=== PATIENT | male | born 1950 | race Caucasian/White ===

== ENCOUNTER 2017-06-13 14:22 | Emergency (ER) | payer MEDICARE, OTHER ==
[~2017-06-13] VITALS: Ht 162.6 cm; Wt 90.9 kg
[~2017-06-13 14:22] MED LIST: ACET-2119 PO; ALLO100T PO; AMIO200T57 PO; CALC355O3 PO; COLL30OI TP; DULR RC; FERR325T28 PO; GABA-532 PO; INSU100V13 SQ; LORA0.5T PO; MAGN800O PO; MIRT15TA PO; MULT-1085 PO; NA P133E4 RC; OXYC-145 PO; POLY17PO10 PO; VITC500T PO; [UNRECOGNIZED DRUG - CODE] TOP; [UNRECOGNIZED DRUG - CODE] TOP
[2017-06-13 19:30] VITALS: BP 140/80
== END 2017-06-13 18:23 | disposition home or self-care (01) ==
LOC: ER 14:23
DX: K59.00 Constipation, unspecified (principal); K21.9 Gastro-esophageal reflux disease without esophagitis; I10 Essential (primary) hypertension; I48.91 Unspecified atrial fibrillation; M10.9 Gout, unspecified; G62.9 Polyneuropathy, unspecified; Z79.899 Other long term (current) drug therapy; Z91.013 Allergy to seafood
CPT/HCPCS: 93005; 96372; 99284; J2270

== ENCOUNTER 2017-07-24 22:39 | Emergency (ER) | payer MEDICARE, OTHER ==
[~2017-07-24] VITALS: Ht 188 cm; Wt 100.0 kg
[2017-07-24] MEDS ORDERED: HYDROmorphone 1 mg/ml syringe IV ONE (22:55)
[2017-07-24 23:18] LABS: CLARITY,URINE CLEAR (Clear); COLOR,URINE YELLOW (Yellow); GLUCOSE, URINE NEGATIVE (Neg); KETONES,URINE NEGATIVE (Neg); LEUKOCYTE ESTERASE ,URINE MODERATE (Neg); NITRITES, URINE NEGATIVE (Neg); OCCULT BLOOD,URINE LARGE (Neg); PH,URINE 7.5 (4.8-8.0); PROTEIN,URINE 100 mg/dl (Neg); UROBILINOGEN,URINE 0.2 E.U/dL (0.2-1.0)
[2017-07-24 23:20] LABS: UA COLLECTION TYPE STRAIGHT CATH
[2017-07-24 23:25] LABS: SQUAMOUS EPITHELIAL CELL,UR FEW /LPF (FEW)
[2017-07-24 23:26] LABS: BACTERIA,URINE FEW /HPF (Neg); RBC,URINE TNTC /HPF (0-2)
[2017-07-25 00:43] VITALS: BP 190/108
== END 2017-07-25 01:33 | disposition home or self-care (01) ==
LOC: ER 22:40
DX: T83.098A Other mechanical complication of other urinary catheter, initial encounter (principal); R33.9 Retention of urine, unspecified; R10.30 Lower abdominal pain, unspecified; I10 Essential (primary) hypertension; I48.91 Unspecified atrial fibrillation; K21.9 Gastro-esophageal reflux disease without esophagitis; M10.9 Gout, unspecified; Z87.442 Personal history of urinary calculi; Z98.890 Other specified postprocedural states; Z79.899 Other long term (current) drug therapy; Z91.013 Allergy to seafood
CPT/HCPCS: 81001; 99284

== ENCOUNTER 2017-10-30 08:41 | Emergency (ER) | payer OTHER, MEDICARE ==
[~2017-10-30] VITALS: Ht 137.2 cm; Wt 93.2 kg
[2017-10-30 09:24] LABS: BASOPHILS % (AUTO) 0 % (0-1); EOSINOPHILS # (AUTO) 0.3 X10'3 (0-0.9); EOSINOPHILS % (AUTO) 1.7 % (0-6); HEMATOCRIT 35.7 % (42.0-52.0); HEMOGLOBIN 12.4 g/dl (14.0-17.9); LYMPHOCYTES % (AUTO) 6.8 % (21-51); MEAN CORPUSCULAR HEMOGLOBIN 31.6 PG (27.0-31.0); MEAN CORPUSCULAR HGB CONC 34.6 % (33.0-36.5); MEAN CORPUSCULAR VOLUME 91.2 FL (78-98); MONOCYTES # (AUTO) 0.9 X10'3 (0-0.9); NEUTROPHILS # (AUTO) 12.7 X10'3 (1.8-7.7); NEUTROPHILS % (AUTO) 85.5 % (42-75); PLATELET COUNT 188 X10'3 (140-440); RED BLOOD COUNT 3.92 X10'6 (4.70-6.10); RED CELL DISTRIBUTION WIDTH 13.8 % (11.5-14.5); WHITE BLOOD COUNT 14.8 X10'3 (4.5-11.0)
[2017-10-30 09:36] LABS: PARTIAL THROMBOPLASTIN TIME 31 SECONDS (22-32); PROTHROMBIN TIME 10.6 SECONDS (9.0-12.0)
[2017-10-30 09:46] LABS: ALANINE AMINOTRANSFERASE 37 U/L (12-78); ALBUMIN 3.6 G/DL (3.4-5.0); ALBUMIN/GLOBULIN RATIO 0.9 (1.1-1.5); ALKALINE PHOSPHATASE 50 IU/L (46-116); ANION GAP 9 (8-16); ASPARTATE AMINO TRANSFERASE 25 U/L (10-37); BILIRUBIN,TOTAL 0.5 MG/DL (0.1-1.0); BLOOD UREA NITROGEN 23 MG/DL (7-18); BUN/CREATININE RATIO 22.8 (5.4-32.0); CALCIUM 9.1 MG/DL (8.5-10.1); CHLORIDE 100 MMOL/L (99-107); CREATININE 1.01 MG/DL (0.60-1.10); GLUCOSE 168 MG/DL (70-104); POTASSIUM 4.8 MMOL/L (3.5-5.1); SODIUM 134 MMOL/L (135-145); TOTAL PROTEIN 7.4 G/DL (6.4-8.2); eGFR 73 ML/MIN
[2017-10-30] MEDS ORDERED: iohexol 350MG/ML 100ml bottle IV ONE (09:59)
[2017-10-30] MEDS ORDERED: CefTRIAXone 2gm/D5W 50ml 50 ML IV ONE (11:25)
[2017-10-30 11:29] LABS: CLARITY,URINE CLOUDY (Clear); COLOR,URINE YELLOW (Yellow); GLUCOSE, URINE NEGATIVE (Neg); KETONES,URINE NEGATIVE (Neg); LEUKOCYTE ESTERASE ,URINE LARGE (Neg); NITRITES, URINE NEGATIVE (Neg); OCCULT BLOOD,URINE SMALL (Neg); PH,URINE >=9.0 (4.8-8.0); PROTEIN,URINE 100 mg/dl (Neg); UROBILINOGEN,URINE 0.2 E.U/dL (0.2-1.0)
[2017-10-30 11:30] LABS: UA COLLECTION TYPE FOLEY CATH
[2017-10-30 11:36] LABS: AMORPHOUS PHOSPHATES 3+; BACTERIA,URINE 1+ /HPF (Neg); SQUAMOUS EPITHELIAL CELL,UR NONE SEEN /LPF (FEW); TRIPLE PHOSPHATE CRYST 3+ /HPF (NEGATIVE)
[2017-10-30] MEDS ORDERED: normal saline 1000ml 1,000 ML IV ONE (11:50)
[2017-10-30] MEDS ORDERED: acetaminophen 325mg tablet PO ONE (12:20)
[2017-10-30] MEDS ORDERED: NITR100C6 PO (12:29)
[2017-10-30 14:18] VITALS: BP 149/70
== END 2017-10-30 14:34 | disposition home or self-care (01) ==
LOC: ER 08:42
DX: N39.0 Urinary tract infection, site not specified (principal); G62.9 Polyneuropathy, unspecified; I48.91 Unspecified atrial fibrillation; I10 Essential (primary) hypertension; K21.9 Gastro-esophageal reflux disease without esophagitis; R53.83 Other fatigue; Z98.890 Other specified postprocedural states; Z89.612 Acquired absence of left leg above knee; Z89.511 Acquired absence of right leg below knee; Z91.013 Allergy to seafood; Z79.899 Other long term (current) drug therapy; Z87.891 Personal history of nicotine dependence
CPT/HCPCS: 36415; 71045; 71275; 80053; 81001; 82948; 83880; 84484; 85025; 85610; 85730; 87077; 87088; 87186; 93005; 96365; 99285; J0696; J7030; Q9967

== ENCOUNTER 2018-03-08 10:34 | Emergency (ER) | payer OTHER, MEDICARE ==
[~2018-03-08] VITALS: Ht 660.3 cm; Wt 113.0 kg
[~2018-03-08 10:34] MED LIST changes: +AMIO200T40 PO; -AMIO200T57 PO; +NITR100C6 PO
[2018-03-08 11:24] LABS: CLARITY,URINE SLIGHTLY CLOUDY (Clear); COLOR,URINE YELLOW (Yellow); GLUCOSE, URINE >=1000 mg/dl (Neg); KETONES,URINE NEGATIVE (Neg); LEUKOCYTE ESTERASE ,URINE SMALL (Neg); NITRITES, URINE NEGATIVE (Neg); OCCULT BLOOD,URINE MODERATE (Neg); PROTEIN,URINE 30 mg/dl (Neg); UROBILINOGEN,URINE 0.2 E.U/dL (0.2-1.0)
[2018-03-08 11:53] LABS: UA COLLECTION TYPE FOLEY CATH
[2018-03-08 11:56] LABS: RBC,URINE 50-100 /HPF (0-2)
[2018-03-08 11:58] LABS: SQUAMOUS EPITHELIAL CELL,UR NONE SEEN /LPF (FEW)
[2018-03-08] MEDS ORDERED: CIPR-259 PO (12:02)
[2018-03-08 12:10] LABS: AMORPHOUS URATES 1+; BACTERIA,URINE 2+ /HPF (Neg); MUCUS STRANDS FEW /LPF (Neg)
[2018-03-08 14:21] VITALS: BP 172/88
== END 2018-03-08 14:23 | disposition home or self-care (01) ==
LOC: ER 10:34
DX: R33.9 Retention of urine, unspecified (principal); N39.0 Urinary tract infection, site not specified; I10 Essential (primary) hypertension; K21.9 Gastro-esophageal reflux disease without esophagitis; I48.91 Unspecified atrial fibrillation; M10.9 Gout, unspecified; G62.9 Polyneuropathy, unspecified; Z91.013 Allergy to seafood; Z79.4 Long term (current) use of insulin; Z79.2 Long term (current) use of antibiotics; Z79.899 Other long term (current) drug therapy
CPT/HCPCS: 51702; 81001; 87088; 99284; A4315; 87077; 87186

== ENCOUNTER 2018-11-08 20:21 | Emergency (ER) | payer OTHER, MEDICARE ==
[~2018-11-08] VITALS: Ht 180.3 cm; Wt 95.0 kg
[2018-11-08] MEDS ORDERED: normal saline 1000ML IV soln IVB ONE ×2 (20:30)
[2018-11-08] MEDS ORDERED: metoclopramide 5 mg/ml inj IV ONE (20:30)
[2018-11-08] MEDS ORDERED: LORazepam 2 mg/ml vial IV ONE (20:30)
[2018-11-08] MEDS ORDERED: diphenhydrAMINE 50 mg/ml inj IV ONE (20:30)
[2018-11-08] MEDS ORDERED: HYDROmorphone inj. 0.5 MG/0.5 ML DISP.SYRIN IV PRN (20:30)
[2018-11-08 20:48] LABS: BASOPHILS % (AUTO) 0.6 % (0-1); EOSINOPHILS # (AUTO) 0.1 X10'3 (0-0.9); EOSINOPHILS % (AUTO) 2.4 % (0-6); HEMATOCRIT 32.1 % (42.0-52.0); HEMOGLOBIN 11.1 g/dl (14.0-17.9); LYMPHOCYTES # (AUTO) 0.5 X10'3 (1.1-4.8); LYMPHOCYTES % (AUTO) 9.1 % (21-51); MEAN CORPUSCULAR HEMOGLOBIN 32.3 PG (27.0-31.0); MEAN CORPUSCULAR HGB CONC 34.7 g/dL (33.0-36.5); MEAN CORPUSCULAR VOLUME 93.3 FL (78-98); MEAN PLATELET VOLUME 9.4 FL (7.4-10.4); MONOCYTES # (AUTO) 0.3 X10'3 (0-0.9); MONOCYTES % (AUTO) 5.1 % (2-12); NEUTROPHILS # (AUTO) 4.7 X10'3 (1.8-7.7); NEUTROPHILS % (AUTO) 82.8 % (42-75); PLATELET COUNT 173 X10'3 (140-440); RED BLOOD COUNT 3.44 X10'6 (4.70-6.10); RED CELL DISTRIBUTION WIDTH 13.9 % (11.5-14.5); WHITE BLOOD COUNT 5.6 X10'3 (4.5-11.0)
[2018-11-08 20:56] LABS: UA COLLECTION TYPE FOLEY CATH
[2018-11-08 20:57] LABS: CLARITY,URINE SLIGHTLY CLOUDY (Clear); COLOR,URINE YELLOW (Yellow); GLUCOSE, URINE 250 mg/dl (Neg); KETONES,URINE NEGATIVE (Neg); LEUKOCYTE ESTERASE ,URINE MODERATE (Neg); NITRITES, URINE POSITIVE (Neg); OCCULT BLOOD,URINE LARGE (Neg); PROTEIN,URINE TRACE mg/dl (Neg); UROBILINOGEN,URINE 0.2 E.U/dL (0.2-1.0)
[2018-11-08 21:01] LABS: ALANINE AMINOTRANSFERASE 50 U/L (12-78); ALBUMIN 3.4 G/DL (3.4-5.0); ALBUMIN/GLOBULIN RATIO 0.9 (1.1-1.5); ALKALINE PHOSPHATASE 34 IU/L (46-116); ANION GAP 10 (8-16); ASPARTATE AMINO TRANSFERASE 54 U/L (10-37); BILIRUBIN,TOTAL 0.3 MG/DL (0.1-1.0); BLOOD UREA NITROGEN 33 MG/DL (7-18); BUN/CREATININE RATIO 27.3 (5.4-32.0); CALCIUM 8.5 MG/DL (8.5-10.1); CHLORIDE 101 MMOL/L (99-107); CREATININE 1.21 MG/DL (0.60-1.10); GLUCOSE 262 MG/DL (70-104); POTASSIUM 4.7 MMOL/L (3.5-5.1); SODIUM 131 MMOL/L (135-145); TOTAL CARBON DIOXIDE 20.4 MMOL/L (24-32); TOTAL PROTEIN 7.2 G/DL (6.4-8.2); eGFR 59 ML/MIN
[2018-11-08 21:02] LABS: BACTERIA,URINE 2+ /HPF (Neg); MUCUS STRANDS NONE SEEN /LPF (Neg); SQUAMOUS EPITHELIAL CELL,UR MODERATE /LPF (FEW)
[2018-11-08 21:03] LABS: YEAST MODERATE /HPF (NEGATIVE)
[2018-11-08 21:04] LABS: RBC,URINE 50-100 /HPF (0-2); WBC,URINE 50-100 /HPF (0-4)
[2018-11-08 21:07] LABS: MAGNESIUM 2.1 MG/DL (1.5-2.4); TROPONIN I < 0.04 NG/ML (0.0-0.05)
[2018-11-08] MEDS ORDERED: CefTRIAXone 2gm/D5W 50ml 50 ML IV ONE (21:15)
[2018-11-08] MEDS ORDERED: CEPH500C5 PO (21:44)
[2018-11-08 23:08] VITALS: BP 158/81
== END 2018-11-08 23:10 | disposition home or self-care (01) ==
LOC: ER 20:21
DX: N39.0 Urinary tract infection, site not specified (principal); I48.91 Unspecified atrial fibrillation; I10 Essential (primary) hypertension; K21.9 Gastro-esophageal reflux disease without esophagitis; M10.9 Gout, unspecified; G62.9 Polyneuropathy, unspecified; Z98.890 Other specified postprocedural states; Z87.891 Personal history of nicotine dependence; Z87.442 Personal history of urinary calculi; Z89.512 Acquired absence of left leg below knee; Z89.511 Acquired absence of right leg below knee; Z79.899 Other long term (current) drug therapy; Z91.013 Allergy to seafood; Z79.4 Long term (current) use of insulin
CPT/HCPCS: 36415; 71045; 80053; 81001; 83735; 83880; 84145; 84484; 85025; 85610; 87077; 87088; 87186; 93005; 96374; 96375; 99284; J0696; J1170; J1200; J2060; J2765; J7030

== ENCOUNTER 2019-01-14 05:36 | Emergency (ER) | payer OTHER, MEDICARE ==
[~2019-01-14] VITALS: Ht 162.6 cm; Wt 111.4 kg
[~2019-01-14 05:36] MED LIST changes: -AMIO200T40 PO; +AMIO200T61 PO; +CEPH500C5 PO
[2019-01-14] MEDS ORDERED: morphine 4 MG/ML inj SYRINge IV PRN (06:10)
[2019-01-14] MEDS ORDERED: normal saline 1000ML IV soln IVB ONE (06:10)
[2019-01-14] MEDS ORDERED: ondansetron/PF 4mg/2ml inj IV ONE (06:10)
[2019-01-14 07:24] LABS: BASOPHILS # (AUTO) 0.1 X10'3 (0-0.2); EOSINOPHILS # (AUTO) 0.4 X10'3 (0-0.9); EOSINOPHILS % (AUTO) 4.7 % (0-6); HEMATOCRIT 33.4 % (42.0-52.0); HEMOGLOBIN 11.3 g/dl (14.0-17.9); LYMPHOCYTES # (AUTO) 2.5 X10'3 (1.1-4.8); LYMPHOCYTES % (AUTO) 29.4 % (21-51); MEAN CORPUSCULAR HGB CONC 33.8 g/dL (33.0-36.5); MEAN CORPUSCULAR VOLUME 94.6 FL (78-98); MEAN PLATELET VOLUME 9.7 FL (7.4-10.4); MONOCYTES # (AUTO) 0.5 X10'3 (0-0.9); MONOCYTES % (AUTO) 5.9 % (2-12); PLATELET COUNT 154 X10'3 (140-440); RED BLOOD COUNT 3.53 X10'6 (4.70-6.10); RED CELL DISTRIBUTION WIDTH 14.5 % (11.5-14.5); WHITE BLOOD COUNT 8.5 X10'3 (4.5-11.0)
[2019-01-14 07:26] LABS: CLARITY,URINE CLOUDY (Clear); COLOR,URINE YELLOW (Yellow); GLUCOSE, URINE 500 mg/dl (Neg); KETONES,URINE NEGATIVE (Neg); LEUKOCYTE ESTERASE ,URINE MODERATE (Neg); NITRITES, URINE NEGATIVE (Neg); OCCULT BLOOD,URINE LARGE (Neg); PROTEIN,URINE 30 mg/dl (Neg); UROBILINOGEN,URINE 0.2 E.U/dL (0.2-1.0)
[2019-01-14 07:32] LABS: LIPASE 220 U/L (73-393)
[2019-01-14 07:33] LABS: ALANINE AMINOTRANSFERASE 33 U/L (12-78); ALBUMIN 3.2 G/DL (3.4-5.0); ALBUMIN/GLOBULIN RATIO 0.9 (1.1-1.5); ALKALINE PHOSPHATASE 37 IU/L (46-116); ANION GAP 7 (8-16); ASPARTATE AMINO TRANSFERASE 23 U/L (10-37); BILIRUBIN,TOTAL 0.2 MG/DL (0.1-1.0); BLOOD UREA NITROGEN 33 MG/DL (7-18); BUN/CREATININE RATIO 26.4 (5.4-32.0); CALCIUM 8.9 MG/DL (8.5-10.1); CHLORIDE 102 MMOL/L (99-107); CREATININE 1.25 MG/DL (0.60-1.10); GLUCOSE 302 MG/DL (70-104); POTASSIUM 4.5 MMOL/L (3.5-5.1); SODIUM 133 MMOL/L (135-145); TOTAL CARBON DIOXIDE 24.2 MMOL/L (24-32); TOTAL PROTEIN 6.9 G/DL (6.4-8.2); eGFR 57 ML/MIN
[2019-01-14 07:35] LABS: UA COLLECTION TYPE OTHER
[2019-01-14 07:36] LABS: BACTERIA,URINE NONE SEEN /HPF (Neg); MUCUS STRANDS NONE SEEN /LPF (Neg); SQUAMOUS EPITHELIAL CELL,UR NONE SEEN /LPF (FEW); WBC,URINE 30-50 /HPF (0-4); YEAST MANY /HPF (NEGATIVE)
[2019-01-14] MEDS ORDERED: CIPR-230 PO (07:50)
[2019-01-14] MEDS ORDERED: ciprofloxacin 250mg tablet PO ONE (08:10)
--- NOTE | 2019-01-14 08:48 | NUR ---
INITIAL DOSE OF CIPRO GIVEN TO PATIENT. AWAITING TRANSPORTATION FROM [facility]. PATIENT TOLERATED YOGURT AND JELLO. BG 270 PER GLUCOMETER.
[2019-01-14] MEDS ORDERED: HYDROcodone/acetaminophen 5mg/325mg tablet PO ONE (10:40)
[2019-01-14 10:57] VITALS: BP 112/72
== END 2019-01-14 10:59 | disposition home or self-care (01) ==
LOC: ER 05:37
DX: N39.0 Urinary tract infection, site not specified (principal); M79.604 Pain in right leg; R11.0 Nausea; I48.91 Unspecified atrial fibrillation; I10 Essential (primary) hypertension; K21.9 Gastro-esophageal reflux disease without esophagitis; M10.9 Gout, unspecified; F32.9 Major depressive disorder, single episode, unspecified; G62.9 Polyneuropathy, unspecified; Z91.013 Allergy to seafood; Z79.899 Other long term (current) drug therapy; Z79.2 Long term (current) use of antibiotics; Z87.442 Personal history of urinary calculi; Z87.440 Personal history of urinary (tract) infections; Z98.890 Other specified postprocedural states
CPT/HCPCS: 36415; 80053; 81001; 82948; 83690; 85025; 87077; 87088; 87186; 96374; 96375; 99284; J2270; J2405; J7030; 99283

== ENCOUNTER 2019-03-30 20:01 | Emergency (ER) | payer OTHER ==
[~2019-03-30] VITALS: Ht 188 cm; Wt 106.8 kg
[2019-03-30] MEDS ORDERED: morphine 4 MG/ML inj SYRINge IV ONE (20:55)
[2019-03-30] MEDS ORDERED: normal saline 1000ML IV soln IVB ONE (20:55)
[2019-03-30] MEDS ORDERED: ondansetron/PF 4mg/2ml inj IV ONE (20:55)
[2019-03-30 21:24] LABS: BASOPHILS # (AUTO) 0.1 X10'3 (0-0.2); BASOPHILS % (AUTO) 0.6 % (0-1); EOSINOPHILS # (AUTO) 0.1 X10'3 (0-0.9); HEMATOCRIT 33.6 % (42.0-52.0); HEMOGLOBIN 11.3 g/dl (14.0-17.9); LYMPHOCYTES # (AUTO) 1.2 X10'3 (1.1-4.8); LYMPHOCYTES % (AUTO) 9.1 % (21-51); MEAN CORPUSCULAR HEMOGLOBIN 31.8 PG (27.0-31.0); MEAN CORPUSCULAR HGB CONC 33.6 g/dL (33.0-36.5); MEAN CORPUSCULAR VOLUME 94.5 FL (78-98); MEAN PLATELET VOLUME 9.9 FL (7.4-10.4); MONOCYTES # (AUTO) 0.9 X10'3 (0-0.9); MONOCYTES % (AUTO) 6.5 % (2-12); NEUTROPHILS % (AUTO) 82.8 % (42-75); PLATELET COUNT 151 X10'3 (140-440); RED BLOOD COUNT 3.56 X10'6 (4.70-6.10); RED CELL DISTRIBUTION WIDTH 15.9 % (11.5-14.5); WHITE BLOOD COUNT 13.2 X10'3 (4.5-11.0)
[2019-03-30] MEDS: metoprolol tartrate 1mg/ml inj IV SCH ×4 (21:26→22:33)
[2019-03-30 21:48] LABS: ALANINE AMINOTRANSFERASE 34 U/L (12-78); ALBUMIN 3.4 G/DL (3.4-5.0); ALBUMIN/GLOBULIN RATIO 0.7 (1.1-1.5); ALKALINE PHOSPHATASE 45 IU/L (46-116); ANION GAP 9 (8-16); ASPARTATE AMINO TRANSFERASE 26 U/L (10-37); BILIRUBIN,TOTAL 0.3 MG/DL (0.1-1.0); BLOOD UREA NITROGEN 34 MG/DL (7-18); BUN/CREATININE RATIO 21.3 (5.4-32.0); CALCIUM 9.4 MG/DL (8.5-10.1); CHLORIDE 100 MMOL/L (99-107); GLUCOSE 296 MG/DL (70-104); POTASSIUM 4.6 MMOL/L (3.5-5.1); SODIUM 132 MMOL/L (135-145); TOTAL CARBON DIOXIDE 23.5 MMOL/L (24-32); TOTAL PROTEIN 8.3 G/DL (6.4-8.2); eGFR 43 ML/MIN
[2019-03-30] MEDS ORDERED: CefTRIAXone/D5W-Rocephin 1gm 50 ML IV ONE (22:05)
[2019-03-30 22:34] LABS: CLARITY,URINE CLEAR (Clear); COLOR,URINE YELLOW (Yellow); GLUCOSE, URINE 500 mg/dl (Neg); KETONES,URINE NEGATIVE (Neg); LEUKOCYTE ESTERASE ,URINE TRACE (Neg); NITRITES, URINE POSITIVE (Neg); OCCULT BLOOD,URINE MODERATE (Neg); PH,URINE 6.5 (4.8-8.0); PROTEIN,URINE 30 mg/dl (Neg); UROBILINOGEN,URINE 0.2 E.U/dL (0.2-1.0)
[2019-03-30 22:38] LABS: UA COLLECTION TYPE FOLEY CATH
[2019-03-30 22:41] LABS: BACTERIA,URINE NONE SEEN /HPF (Neg); MUCUS STRANDS NONE SEEN /LPF (Neg); RBC,URINE 0-2 /HPF (0-2); SQUAMOUS EPITHELIAL CELL,UR NONE SEEN /LPF (FEW)
[2019-03-30 22:42] LABS: YEAST FEW /HPF (NEGATIVE)
[2019-03-30] MEDS ORDERED: diltiazem 5mg/ml 5ml inj. IV ONE (22:50)
[2019-03-30] MEDS ORDERED: CEPH500C5 PO (23:18)
[2019-03-30 23:47] VITALS: BP 124/61
== END 2019-03-31 00:52 | disposition home or self-care (01) ==
LOC: ER 20:02
DX: T83.511A Infection and inflammatory reaction due to indwelling urethral catheter, initial encounter (principal); I48.20 Chronic atrial fibrillation, unspecified; F41.9 Anxiety disorder, unspecified; G89.29 Other chronic pain; N39.0 Urinary tract infection, site not specified; G62.9 Polyneuropathy, unspecified; I10 Essential (primary) hypertension; K21.9 Gastro-esophageal reflux disease without esophagitis; F32.9 Major depressive disorder, single episode, unspecified; Z87.442 Personal history of urinary calculi; Z98.890 Other specified postprocedural states; Z91.013 Allergy to seafood; Z79.4 Long term (current) use of insulin; Z79.899 Other long term (current) drug therapy; Y84.6 Urinary catheterization as the cause of abnormal reaction of the patient, or of later complication, without mention of misadventure at the time of the procedure; Y92.89 Other specified places as the place of occurrence of the external cause
CPT/HCPCS: 36415; 80053; 81001; 85025; 87077; 87088; 87186; 93005; 96365; 96375; 96376; 99284; J0696; J2270; J2405; J7030; J3490

== ENCOUNTER 2019-04-02 01:06 | Inpatient (IN) | payer OTHER, MEDICARE ==
[2019-04-02] VITALS (12 sets, daily range): BP systolic 92–132; BP diastolic 54–71
[~2019-04-02] VITALS: Ht 162.6 cm; Wt 115.2 kg
--- NOTE | 2019-04-02 01:20 | NUR ---
REPORT RECIEVED FROM THE [facility] PRIOR TO PATIENT ARRIVAL. [facility] NURSE STATED THAT PT HAD C/O SOB AND HEAVYNESS IN HIS CHEST. REPORTING NURSE STATED THAT HIS COLOR "LOOKED BAD" AND HIS APPETITE HAD DECREASED. VA NURSE ALSO STATED THAT THE RX FOR ANTIBIOTICS THAT PT RECIEVED FROM ER 2 DAYS AGO WAS NOT FILLED AND ADMINISTERED TO PATIENT. ALSO REPORTED THAT PT DID NOT EXHIBIT A-FIB AT [facility]. PT WAS GIVEN COREG AT APPROX 1730 AND HEART RATE DROPPED TO THE 40'S.
[2019-04-02] MEDS ORDERED: metoclopramide 5 mg/ml inj IV ONE (01:35)
[2019-04-02] MEDS ORDERED: diphenhydrAMINE 50 mg/ml inj IV ONE (01:35)
[2019-04-02 01:46] LABS: BASOPHILS # (AUTO) 0.1 X10'3 (0-0.2); BASOPHILS % (AUTO) 0.7 % (0-1); EOSINOPHILS # (AUTO) 0.2 X10'3 (0-0.9); EOSINOPHILS % (AUTO) 2.3 % (0-6); HEMATOCRIT 30.6 % (42.0-52.0); HEMOGLOBIN 10.4 g/dl (14.0-17.9); LYMPHOCYTES # (AUTO) 1.3 X10'3 (1.1-4.8); LYMPHOCYTES % (AUTO) 16.7 % (21-51); MEAN CORPUSCULAR HEMOGLOBIN 31.8 PG (27.0-31.0); MEAN CORPUSCULAR HGB CONC 33.8 g/dL (33.0-36.5); MEAN CORPUSCULAR VOLUME 93.9 FL (78-98); MEAN PLATELET VOLUME 9.8 FL (7.4-10.4); MONOCYTES # (AUTO) 0.8 X10'3 (0-0.9); NEUTROPHILS # (AUTO) 5.4 X10'3 (1.8-7.7); NEUTROPHILS % (AUTO) 70.3 % (42-75); PLATELET COUNT 158 X10'3 (140-440); RED BLOOD COUNT 3.26 X10'6 (4.70-6.10); RED CELL DISTRIBUTION WIDTH 15.8 % (11.5-14.5); WHITE BLOOD COUNT 7.6 X10'3 (4.5-11.0)
[2019-04-02 01:48] LABS: COLOR,URINE YELLOW (Yellow); GLUCOSE, URINE NEGATIVE (Neg); KETONES,URINE NEGATIVE (Neg); LEUKOCYTE ESTERASE ,URINE TRACE (Neg); NITRITES, URINE POSITIVE (Neg); OCCULT BLOOD,URINE MODERATE (Neg); PROTEIN,URINE 100 mg/dl (Neg); UROBILINOGEN,URINE 0.2 E.U/dL (0.2-1.0)
[2019-04-02 01:55] LABS: UA COLLECTION TYPE NON-SPECIFIED
[2019-04-02 01:56] LABS: CLARITY,URINE SLIGHTLY CLOUDY (Clear)
[2019-04-02 01:57] LABS: BACTERIA,URINE FEW /HPF (Neg); RBC,URINE 0-2 /HPF (0-2); SQUAMOUS EPITHELIAL CELL,UR FEW /LPF (FEW); YEAST FEW /HPF (NEGATIVE)
[2019-04-02 01:58] LABS: ALANINE AMINOTRANSFERASE 30 U/L (12-78); ALBUMIN/GLOBULIN RATIO 0.6 (1.1-1.5); ALKALINE PHOSPHATASE 34 IU/L (46-116); ANION GAP 10 (8-16); ASPARTATE AMINO TRANSFERASE 31 U/L (10-37); BILIRUBIN,TOTAL 0.3 MG/DL (0.1-1.0); BLOOD UREA NITROGEN 39 MG/DL (7-18); BUN/CREATININE RATIO 27.5 (5.4-32.0); CALCIUM 8.6 MG/DL (8.5-10.1); CHLORIDE 101 MMOL/L (99-107); CREATININE 1.42 MG/DL (0.60-1.10); GLUCOSE 181 MG/DL (70-104); POTASSIUM 4.7 MMOL/L (3.5-5.1); SODIUM 132 MMOL/L (135-145); TOTAL CARBON DIOXIDE 21.5 MMOL/L (24-32); TOTAL PROTEIN 7.7 G/DL (6.4-8.2); eGFR 49 ML/MIN
[2019-04-02 02:06] LABS: MAGNESIUM 2.1 MG/DL (1.5-2.4); TROPONIN I < 0.04 NG/ML (0.0-0.05)
[2019-04-02] MEDS ORDERED: nitrofuran/nitrofuran macrocrysal 100 MG capsule PO ONE (02:30)
[2019-04-02] MEDS ORDERED: levoFLOXACIN 250mg tablet PO ONE (02:30)
[2019-04-02] MEDS ORDERED: NITR100C6 PO (02:37)
[2019-04-02] MEDS ORDERED: LEVO500T2 PO (02:37)
--- NOTE | 2019-04-02 02:46 | NUR ---
PT CONTINUES TO TAKE VS MONITORS OFF EVEN AFTER INSTRUCTIONS, BENEFITS, AND RISKS.
--- NOTE | 2019-04-02 03:55 | NUR ---
PT SUPRAPUBIC CATHETER CHANGED OUT BY DAISY MEDINA. PT PRESSURE SORE ON COCCYX SEEN BY DAISY MEDINA AND SORE REDRESSED.
--- NOTE | 2019-04-02 04:17 | NUR ---
ATTEMPTED TWICE TO CALL [facility] FOR TRANSFER AND RN TO RN REPORT. WILL TRY AGAIN
--- NOTE | 2019-04-02 04:29 | NUR ---
GAVE RN TO RN REPORT TO [facility] REGARDING CARE, MEDICATIONS, AND DISCHARGE INSTRUCTIONS. [facility] FACILITATED [facility].
[2019-04-02] MEDS ORDERED: ipratropium/albuterol 3ml nebule NEB ONE (04:50)
[2019-04-02] MEDS ORDERED: propofol 1000mg/100ml bottle 100 ML IV PRN (05:02)
[2019-04-02] MEDS ORDERED: propofol 1000mg/100ml bottle 100 ML IV ONE (05:04)
[2019-04-02] MEDS ORDERED: vancomycin/NS 1 GM ADD-VANTAGE 250 ML IV ONE ×2 (05:15→10:20)
[2019-04-02] MEDS ORDERED: vancomycin inj 1,000 MG in normal saline 250ml IV soln 250 ML IV ONE (05:15)
[2019-04-02 05:16] LABS: ABG BASE EXCESS -12.3 mmol/L (-2.0-3.0); ABG HCO3 17.9 mmol/L (22.0-26.0); ABG OXYGEN SATURATION 87.3 % (95-98); ABG PCO2 (T) 64.4 mmHg (35.0-45.0); ABG PH (T) 7.071 (7.350-7.450); ABG PO2 (T) 78.8 mmHg (83-108); ALLEN'S TEST Positive; FCOHb 0.7 % (0.5-1.5); FMetHb 0.1 % (0.3-1.12); FO2Hb 86.6 % (94-100); PATIENT TEMPERATURE 38.3; PEEP 10 cm H2O; RESPIRATORY RATE 16 b/min; RESPIRATORY RATE (OBSERVED) 16 b/min; TIDAL VOLUME 450 mL; TOTAL HEMOGLOBIN 12.6 G/dl (14.0-17.9)
[2019-04-02 05:20] LABS: D-DIMER 0.52 MG/L FEU (0-0.50)
--- NOTE | 2019-04-02 05:30 | NUR ---
WITNESSED SEIZURE ~ 0438 LASTING 45 SECONDS. DIAPHORETIC. POSTICTAL O2 DROPPED, PT PLACED ON NC @ 6, CONTINUED TO DESAT, PLACED ON NRB @ 15 O2 MAINTATINED @ 92% THEN SUDDEN DESAT TO 77% AND RSI STARTED. 0500 RSI 10 ETOMIDATE 50 MAYELIN DE [place] 4 VS: HR 130, O2 69% NRB 15, RR 33, BP 126/85
[2019-04-02] MEDS ORDERED: amiodarone 150mg/dext, iso-os 100 ML IV ONE (05:35)
[2019-04-02] MEDS ORDERED: amiodarone/D5 360MG/200ML BAG 200 ML IV SCH (06:11)
[2019-04-02] MEDS ORDERED: normal saline 1000ml 1,000 ML IV SCH (06:11)
[2019-04-02] MEDS ORDERED: sodium phosphate inj. 30 MMOL in dextrose 5%-water 250 ML IV PRN (06:15)
[2019-04-02] MEDS ORDERED: magnesium 2GM in 50ml NS 50 ML IV PRN (06:15)
[2019-04-02] MEDS ORDERED: acetaminophen 650mg rectal suppository RC PRN (06:15)
[2019-04-02] MEDS ORDERED: MESSAGE TO PHARMACY PO ONE (06:15)
[2019-04-02] MEDS ORDERED: potassium Cl 20 mEq SR tablet PO PRN ×2 (06:15)
[2019-04-02] MEDS ORDERED: albuterol 2.5 MG/3 ML nebule NEB PRN (06:15)
[2019-04-02] MEDS ORDERED: glucagon, human recombinant 1mg kit SUBCUT PRN (06:15)
[2019-04-02] MEDS ORDERED: magnesium 4gm in 100ml NS 100 ML IV PRN (06:15)
[2019-04-02] MEDS ORDERED: ondansetron/PF 4mg/2ml inj IV PRN (06:15)
[2019-04-02] MEDS ORDERED: acetaminophen 325mg tablet PO PRN ×2 (06:15)
[2019-04-02] MEDS ORDERED: dextrose ORAL solution 15 GM/59 ML bottle PO PRN ×2 (06:15)
[2019-04-02] MEDS ORDERED: potassium CL 10mEq/100ml bag 100 ML IV PRN ×2 (06:15)
[2019-04-02] MEDS ORDERED: dextrose 50%-water 50ml dispensing syringe IV PRN ×2 (06:15)
[2019-04-02] MEDS ORDERED: acetaminophen 650mg rectal suppository RC ONE (06:25)
--- NOTE | 2019-04-02 06:25 | NUR ---
RECEIVED VERBAL ORDER FOR TYLENOL 650MG SUPPOSITORY X1 NOW FOR REPORTED TEMP OF 102.3
[2019-04-02] MEDS: ipratropium/albuterol 3ml nebule NEB SCH ×5 (07:00→23:12)
[2019-04-02] MEDS ORDERED: Levetiracetam-NS 500mg/100ml 100 ML IV SCH (07:00)
[2019-04-02 07:15] LABS: BASOPHILS # (AUTO) 0.2 X10'3 (0-0.2); BASOPHILS % (AUTO) 0.9 % (0-1); EOSINOPHILS # (AUTO) 0.4 X10'3 (0-0.9); EOSINOPHILS % (AUTO) 2.1 % (0-6); HEMATOCRIT 37.6 % (42.0-52.0); HEMOGLOBIN 12.2 g/dl (14.0-17.9); LYMPHOCYTES # (AUTO) 4.1 X10'3 (1.1-4.8); LYMPHOCYTES % (AUTO) 24.2 % (21-51); MEAN CORPUSCULAR HEMOGLOBIN 31.4 PG (27.0-31.0); MEAN CORPUSCULAR HGB CONC 32.5 g/dL (33.0-36.5); MEAN CORPUSCULAR VOLUME 96.4 FL (78-98); MEAN PLATELET VOLUME 10.6 FL (7.4-10.4); MONOCYTES # (AUTO) 2.2 X10'3 (0-0.9); MONOCYTES % (AUTO) 13.1 % (2-12); NEUTROPHILS % (AUTO) 59.7 % (42-75); PLATELET COUNT 257 X10'3 (140-440); RED CELL DISTRIBUTION WIDTH 15.9 % (11.5-14.5); WHITE BLOOD COUNT 16.7 X10'3 (4.5-11.0)
--- NOTE | 2019-04-02 07:25 | NUR ---
OGT insert at this time. Placement verified with two nurses by administration of air bolus and auscultation. Green colored secretions noted upon connecting to suction. Suction set to low intermittent.
[2019-04-02 07:31] LABS: ALANINE AMINOTRANSFERASE 33 U/L (12-78); ALBUMIN 3.2 G/DL (3.4-5.0); ALBUMIN/GLOBULIN RATIO 0.6 (1.1-1.5); ALKALINE PHOSPHATASE 43 IU/L (46-116); ANION GAP 10 (8-16); ASPARTATE AMINO TRANSFERASE 47 U/L (10-37); BILIRUBIN,TOTAL 0.4 MG/DL (0.1-1.0); BLOOD UREA NITROGEN 37 MG/DL (7-18); CALCIUM 9.1 MG/DL (8.5-10.1); CHLORIDE 99 MMOL/L (99-107); CREATININE 1.68 MG/DL (0.60-1.10); GLUCOSE 313 MG/DL (70-104); MAGNESIUM 2.3 MG/DL (1.5-2.4); PHOSPHORUS 4.7 MG/DL (2.3-4.5); SODIUM 130 MMOL/L (135-145); TOTAL CARBON DIOXIDE 21.4 MMOL/L (24-32); TOTAL PROTEIN 8.8 G/DL (6.4-8.2); TROPONIN I < 0.04 NG/ML (0.0-0.05); eGFR 41 ML/MIN
[2019-04-02] MEDS: FENTANYL-0.9 % NACL/PF 100 ML IV PRN ×2 (07:33→17:41)
[2019-04-02] MEDS: midazolam 100mg in NS 100ml 100 ML IV PRN (07:35)
[2019-04-02 07:40] LABS: POTASSIUM 6.2 MMOL/L (3.5-5.1)
[2019-04-02 07:49] LABS: HEMOGLOBIN A1C 9.1 % (4.5-6.2)
[2019-04-02 07:53] LABS: ANISOCYTOSIS 1+; PLATELET ESTIMATE NORMAL; TOTAL CELLS COUNTED 100
[2019-04-02 07:54] LABS: POLYCHROMASIA FEW; TEAR DROP CELLS FEW
[2019-04-02] MEDS ORDERED: heparin, porcine 5000 units/ml vial SQ SCH (08:00)
[2019-04-02] MEDS ORDERED: rocuronium 10mg/ml inj IV ONE ×2 (08:00→09:35)
[2019-04-02] MEDS ORDERED: pantoprazole 40 MG vial IV SCH (08:00)
[2019-04-02] MEDS ORDERED: etomidate 2mg/ml inj. ONE (08:00)
--- NOTE | 2019-04-02 08:03 | NUR ---
CALLED LEXI CARBAJAL AND REPORTED CRITICAL K+ VALUE OF 6.2 AND REPORTED TRENDING VSS WITH VERCED AND FENTANYL TITRATION. RECEIVED VO TO GIVE FLUID BOLUS OF 500ML OF NS X1 NOW AND TO HOLD AMIODARONE AND KEPPRA UNTIL SHE COMES AND SEES PT. REPORT PT TO BE SEEN SHORTLY.
[2019-04-02 08:36] LABS: URINE AMPHETAMINE SCREEN NEGATIVE (Neg); URINE BARBITUATE SCREEN NEGATIVE (Neg); URINE BENZODIAZEPINES SCREEN NEGATIVE (Neg); URINE CANNABINOID SCREEN NEGATIVE (Neg); URINE COCAINE SCREEN NEGATIVE (Neg); URINE METHADONE SCREEN NEGATIVE (Neg); URINE OPIATE SCREEN POSITIVE (Neg); URINE PHENCYCLIDINE SCREEN NEGATIVE (Neg)
--- NOTE | 2019-04-02 08:55 | NUR ---
LEXI BEACH HERE ASSESSING PT AT BEDSIDE.
--- NOTE | 2019-04-02 09:00 | NUR ---
ANGELITO BEACH AT PT BEDSIDE AND RECEIVED VO TO INCREASE FENTANYL DRIP TO 100MCG/HR
[2019-04-02] MEDS ORDERED: furosemide 40mg/4ml inj IV ONE (09:10)
--- NOTE | 2019-04-02 09:15 | NUR ---
LEXI BEACH AWARE OF VS'S, PTS GTTS TO REMAIN AT ONGOING RATES AND PT TO HAVE A CENTRAL LINE STARTED AND TO RECEIVE PRESSURE MEDS
--- NOTE | 2019-04-02 09:40 | NUR ---
PTS DAUGHTER DANG CALLED AND LEFT CONTACT PHONE NUMBER
--- NOTE | 2019-04-02 09:47 | NUR ---
Finish Filer and PA at bedside right now performing central line insertion.
[2019-04-02] MEDS: piperacillin/tazo 3.375gm/50ml 50 ML IV SCH ×2 (10:29→19:24)
[2019-04-02] MEDS: heparin, porcine 5000 units/ml vial SQ SCH ×2 (10:30→17:17)
[2019-04-02] MEDS ORDERED: LISI-600 PO (10:51)
[2019-04-02] MEDS ORDERED: TURM538C PO (10:51)
[2019-04-02] MEDS ORDERED: CYAN-51 PO (10:51)
[2019-04-02] MEDS ORDERED: MAGN296S50 PO (10:51)
[2019-04-02] MEDS ORDERED: SENN-162 PO (10:51)
[2019-04-02] MEDS ORDERED: LIRA0.6P2 SUBCUT (10:51)
[2019-04-02] MEDS ORDERED: DEXT1DRO13 EACHEYE (10:51)
[2019-04-02] MEDS ORDERED: ATOR20TA PO (10:51)
[2019-04-02] MEDS ORDERED: ICOS1CAP PO (10:51)
[2019-04-02] MEDS ORDERED: DOCU250C87 PO (10:51)
[2019-04-02] MEDS ORDERED: LANTUS SQ (10:51)
[2019-04-02] MEDS ORDERED: CARV-50 PO (10:51)
[2019-04-02] MEDS ORDERED: FLUTICASONE SPRAY NAS (10:51)
[2019-04-02] MEDS ORDERED: ASPI-920 PO (10:51)
[2019-04-02] MEDS ORDERED: FENO48TA15 PO (10:51)
[2019-04-02] MEDS ORDERED: MAGN400C PO (10:51)
[2019-04-02] MEDS ORDERED: SYN0.088T PO (10:51)
[2019-04-02] MEDS ORDERED: LYR25C PO ×2 (10:51)
[2019-04-02] MEDS ORDERED: METF500T PO ×2 (10:51)
[2019-04-02] MEDS ORDERED: BACL10TA PO (10:51)
[2019-04-02] MEDS ORDERED: NA P133E4 RC (10:51)
[2019-04-02] MEDS ORDERED: DIPH25CA46 PO (10:51)
[2019-04-02] MEDS ORDERED: TAPE100T2 PO (10:51)
[2019-04-02] MEDS ORDERED: vancomycin/NS 1 GM ADD-VANTAGE 250 ML X 1 DOSE IV ONE (12:00)
[2019-04-02 14:21] LABS: ABG BASE EXCESS -10.9 mmol/L (-2.0-3.0); ABG HCO3 17.5 mmol/L (22.0-26.0); ABG OXYGEN SATURATION 96.5 % (95-98); ABG PCO2 (T) 49.5 mmHg (35.0-45.0); ABG PH (T) 7.167 (7.350-7.450); ABG PO2 (T) 103.2 mmHg (83-108); FCOHb 1.1 % (0.5-1.5); FMetHb 0.1 % (0.3-1.12); FO2Hb 95.3 % (94-100); MINUTE VOLUME 9 L/min; PEEP 10 cm H2O; RESPIRATORY RATE 20 b/min; RESPIRATORY RATE (OBSERVED) 20 b/min; TIDAL VOLUME 450 mL; TOTAL HEMOGLOBIN 12.8 G/dl (14.0-17.9)
[2019-04-02] MEDS ORDERED: CARV6.253 PO (16:32)
[2019-04-02] MEDS ORDERED: LISI-604 PO (16:32)
[2019-04-02] MEDS ORDERED: PREG100C55 PO (16:32)
[2019-04-02] MEDS ORDERED: BISA5TAB56 PO (16:32)
[2019-04-02] MEDS ORDERED: ALLO300T11 PO (16:32)
[2019-04-02] MEDS ORDERED: MAGN296S68 PO (16:32)
[2019-04-02] MEDS ORDERED: FENO160T5 PO (16:32)
[2019-04-02] MEDS ORDERED: PREG50CA64 PO (16:32)
[2019-04-02] MEDS: amiodarone 200mg tablet OGT SCH (17:04)
[2019-04-02] MEDS: insulin Lispro (HumaLOG) vial - multi-dose SQ SCH ×2 (17:10→21:49)
--- NOTE | 2019-04-02 18:25 | NUR ---
Patient in room CICU 2010. I have received report from Karishma PLUMMER and had the opportunity to ask questions and assume patient care. Patient on vent fio2 at 45% PEEP of 10, spo2 at 98%, Levophed gtt to keep MAP greater than 65 infusing via central line, will titrate per protocol, versed gtt and fentanyl gtt for sedation and pain control, will titrate per protocol, see IV spreadsheet for further information. See Interventions for further information. Will continue to monitor.
[2019-04-02] MEDS: K and/or MAG REPLACEMENT MC SCH (19:07)
[2019-04-02] MEDS: K, MAG and/or Phos replacement - Verify level? MC SCH (19:08)
[2019-04-02 20:27] LABS: ALBUMIN 2.7 G/DL (3.4-5.0); ANION GAP 8 (8-16); BLOOD UREA NITROGEN 41 MG/DL (7-18); BUN/CREATININE RATIO 20.2 (5.4-32.0); CALCIUM 8.4 MG/DL (8.5-10.1); CHLORIDE 102 MMOL/L (99-107); CREATININE 2.03 MG/DL (0.60-1.10); GLUCOSE 300 MG/DL (70-104); SODIUM 133 MMOL/L (135-145); TROPONIN I 0.39 NG/ML (0.0-0.05); eGFR 33 ML/MIN
[2019-04-02 20:45] LABS: ABG BASE EXCESS -6.8 mmol/L (-2.0-3.0); ABG HCO3 18.7 mmol/L (22.0-26.0); ABG OXYGEN SATURATION 98.1 % (95-98); ABG PCO2 (T) 37.3 mmHg (35.0-45.0); ABG PH (T) 7.319 (7.350-7.450); ABG PO2 (T) 127.9 mmHg (83-108); FCOHb 0.3 % (0.5-1.5); FMetHb 0.1 % (0.3-1.12); FO2Hb 97.7 % (94-100); MINUTE VOLUME 14 L/min; PATIENT TEMPERATURE 37.1; PEEP 10 cm H2O; RESPIRATORY RATE 20 b/min; RESPIRATORY RATE (OBSERVED) 26 b/min; TIDAL VOLUME 450 mL; TOTAL HEMOGLOBIN 11.1 G/dl (14.0-17.9)
[2019-04-02] MEDS: lactobacillus rhamnosus 10,000 MMU CELLS/CAPSULE PO SCH (21:34)
[2019-04-02] MEDS: insulin glargine (Lantus) pen - multi-dose SQ SCH (21:50)
[2019-04-02] MEDS: NORepinephrine 8mg/ 250ml NS 250 ML IV PRN (22:09)
[2019-04-03] VITALS (21 sets, daily range): BP systolic 89–131; BP diastolic 47–68
[2019-04-03] MEDS: midazolam 100mg in NS 100ml 100 ML IV PRN ×2 (00:31→19:12)
[2019-04-03] MEDS: piperacillin/tazo 3.375gm/50ml 50 ML IV SCH ×3 (00:41→16:31)
[2019-04-03] MEDS: heparin, porcine 5000 units/ml vial SQ SCH ×3 (00:42→16:46)
[2019-04-03] MEDS: ipratropium/albuterol 3ml nebule NEB SCH ×6 (02:55→23:06)
[2019-04-03] MEDS: insulin Lispro (HumaLOG) vial - multi-dose SQ SCH ×2 (03:10→08:32)
[2019-04-03 03:11] LABS: ABG BASE EXCESS -3.6 mmol/L (-2.0-3.0); ABG HCO3 22.6 mmol/L (22.0-26.0); ABG OXYGEN SATURATION 96.1 % (95-98); ABG PCO2 (T) 48.6 mmHg (35.0-45.0); ABG PH (T) 7.292 (7.350-7.450); ABG PO2 (T) 97.5 mmHg (83-108); ALLEN'S TEST Positive; FCOHb 0.3 % (0.5-1.5); FMetHb 0.3 % (0.3-1.12); FO2Hb 95.5 % (94-100); MINUTE VOLUME 11 L/min; PATIENT TEMPERATURE 38.4; PEEP 8 cm H2O; RESPIRATORY RATE 20 b/min; RESPIRATORY RATE (OBSERVED) 22 b/min; TIDAL VOLUME 450 mL; TOTAL HEMOGLOBIN 10.8 G/dl (14.0-17.9)
[2019-04-03] MEDS: normal saline 1000ml 1,000 ML IV SCH ×2 (03:15→07:49)
[2019-04-03] MEDS ORDERED: acetaminophen 325mg/10.15ml oral unit dose solution PO PRN (03:15)
[2019-04-03] MEDS ORDERED: acetaminophen 650mg rectal suppository RC PRN (03:15)
[2019-04-03 03:31] LABS: BASOPHILS % (AUTO) 0.3 % (0-1); EOSINOPHILS # (AUTO) 0.1 X10'3 (0-0.9); HEMATOCRIT 29.1 % (42.0-52.0); HEMOGLOBIN 9.9 g/dl (14.0-17.9); LYMPHOCYTES # (AUTO) 0.6 X10'3 (1.1-4.8); MEAN CORPUSCULAR HEMOGLOBIN 31.7 PG (27.0-31.0); MEAN CORPUSCULAR HGB CONC 33.9 g/dL (33.0-36.5); MEAN CORPUSCULAR VOLUME 93.3 FL (78-98); MEAN PLATELET VOLUME 9.3 FL (7.4-10.4); MONOCYTES # (AUTO) 0.9 X10'3 (0-0.9); MONOCYTES % (AUTO) 11.3 % (2-12); NEUTROPHILS % (AUTO) 79.4 % (42-75); PLATELET COUNT 177 X10'3 (140-440); RED BLOOD COUNT 3.11 X10'6 (4.70-6.10); RED CELL DISTRIBUTION WIDTH 15.9 % (11.5-14.5); WHITE BLOOD COUNT 7.5 X10'3 (4.5-11.0)
[2019-04-03 03:32] LABS: ALANINE AMINOTRANSFERASE 26 U/L (12-78); ALBUMIN 2.5 G/DL (3.4-5.0); ALBUMIN/GLOBULIN RATIO 0.5 (1.1-1.5); ALKALINE PHOSPHATASE 29 IU/L (46-116); ANION GAP 10 (8-16); ASPARTATE AMINO TRANSFERASE 28 U/L (10-37); BILIRUBIN,TOTAL 0.4 MG/DL (0.1-1.0); BLOOD UREA NITROGEN 42 MG/DL (7-18); BUN/CREATININE RATIO 20.8 (5.4-32.0); CHLORIDE 104 MMOL/L (99-107); CREATININE 2.02 MG/DL (0.60-1.10); GLUCOSE 200 MG/DL (70-104); MAGNESIUM 2.2 MG/DL (1.5-2.4); PHOSPHORUS 3.6 MG/DL (2.3-4.5); POTASSIUM 5.1 MMOL/L (3.5-5.1); SODIUM 138 MMOL/L (135-145); TOTAL CARBON DIOXIDE 24.5 MMOL/L (24-32); TOTAL PROTEIN 7.2 G/DL (6.4-8.2); TRIGLYCERIDES 471 MG/DL (20-135); eGFR 33 ML/MIN
[2019-04-03 03:36] LABS: PARTIAL THROMBOPLASTIN TIME 37 SECONDS (22-32)
[2019-04-03] MEDS: FENTANYL-0.9 % NACL/PF 100 ML IV PRN ×2 (04:36→16:33)
--- NOTE | 2019-04-03 06:30 | NUR ---
Student documentation: I have reviewed and agree with all interventions, assessments performed and documented by Stefanie.Student Medication Administration: For this medication-pass time frame, all medication were reviewed, dispensed, administered and documented per hospital policy by Stefanie.
--- NOTE | 2019-04-03 06:31 | NUR ---
Problems reprioritized. Patient report given, questions answered & plan of care reviewed with Karishma PLUMMER.
[2019-04-03] MEDS: mineral oil/petrolatum ophthal oint EACHEYE SCH ×3 (07:50→21:16)
[2019-04-03] MEDS: lactobacillus rhamnosus 10,000 MMU CELLS/CAPSULE PO SCH ×2 (07:50→21:16)
[2019-04-03] MEDS: amiodarone 200mg tablet OGT SCH (07:50)
[2019-04-03] MEDS: K, MAG and/or Phos replacement - Verify level? MC SCH (08:00)
[2019-04-03] MEDS ORDERED: levoFLOXACIN-Levaquin 750MG/D5 150 ML IV SCH (08:00)
[2019-04-03] MEDS: K and/or MAG REPLACEMENT MC SCH (08:00)
[2019-04-03] MEDS ORDERED: non-formulary drug (Na Phos,M-B/Na Phos,Di-Ba* (Fleet's Enema*) 1 BOTTLE) RC PRN (09:40)
[2019-04-03] MEDS ORDERED: acetaminophen 325mg tablet PO PRN (09:40)
[2019-04-03] MEDS ORDERED: polyvinyl alcohol ophthalmic drops 15ml bottle EACHEYE PRN (10:20)
--- NOTE | 2019-04-03 10:31 | NUR ---
PRESSURE ULCER EDUCATION: DEFINITION: A pressure ulcer is an area of skin that breaks down when you stay in one position too long. The constant pressure against the skin reduces the blood flow to that area and the affected tissue dies. CAUSES: "Being bedridden or in a wheelchair "Fragile skin "Having a chronic condition, such as diabetes or vascular disease "Inability to move certain parts of your body without assistance "Older age "Incontinence of urine or stool SYMPTOMS: "A reddened area that DOES NOT turn white when pressed on - this can be the beginning of a pressure ulcer "A blister, deep sore or a crater - these can be advanced pressure ulcers FIRST AID: "Relieve the pressure on this area "Keep the area clean and dry "Call your primary doctor if you see any of the above symptoms "DO NOT massage the area "DO NOT use a donut shaped or ring shaped pillow- these actually interfere with the blood flow and cause complications PREVENTION: "Check for pressure ulcers everyday "Change position at least every two hours to relieve pressure "Use items that help relieve pressure- pillows, sheepskin, foam padding, and powders. "Keep skin clean and dry "Eat healthy well balanced meals "Exercise daily IF YOU SEE ANY OF THESE SYMPTOMS WHILE IN THE HOSPITAL - TELL YOUR NURSE IMMEDIATELY. IF YOU SEE ANY OF THESE SYMPTOMS WHILE AT HOME OR HAVE ANY QUESTIONS OR CONCERNS ABOUT PRESSURE ULCERS - CALL YOUR PRIMARY DOCTOR IMMEDIATELY. Addendum: 04/03/19 at 1032 by Alejo Nick RN Amended: Links added.
[2019-04-03] MEDS: Levetiracetam-NS 500mg/100ml 100 ML IV SCH ×2 (11:09→21:13)
[2019-04-03] MEDS ORDERED: diphenhydrAMINE 25mg capsule PO SCH (12:00)
--- NOTE | 2019-04-03 12:55 | NUR ---
Initial & TF consult: Pt is admitted to the hospital with SOB and CAUTI. Pt has hx of peripheral neuropathy, Afrib, HTN, GERD, kidney stones, CAUTI,DM, and gout. Pt has a stage IV sacrum pressure ulcer may r/t DM2, increase protein needs. Pt is intubated with sedation and vasopressor; MAP 69. Pt had EEG done for seizure, but found none altered mental per MD notes. Pt has hx of bowel care meds (Dulcolax, Milk Of Magnesia, Enema) discussed and notified MD. Received TF consult per MD. Rec. Vital AF 1.2 Charlie at goal rate 70ml/hr; meet 100% est. nutrition need and protein need. Recs. 1.Initiates tube feeding per OGTF using Vital AF 1.2 CHARLIE at goal rate 70ml/hr; to provide 1680ml fluid, 1400kcal, 1361ml free water, and 126g protein. 2. Additional water flushes 250ml Q6 3. Prealbumin qM/TH; daily wts 4. Routine bowel care Addendum: 04/03/19 at [address] Amended: Links added. Addendum: 04/03/19 at [address] Recs. 1.Initiates tube feeding per OGTF using Vital AF 1.2 CHARLIE at goal rate 70ml/hr; to provide 1680ml fluid, 1400kcal, 1361ml free water, and 126g protein. 2. Additional water flushes 250ml Q4 3. Prealbumin qM/TH; daily wts 4. Routine bowel care Addendum: 04/03/19 at [address] JODY has reviewed and agree with internet merchant recommendations
[2019-04-03] MEDS ORDERED: pregabalin 25mg capsule PO SCH (13:00)
[2019-04-03] MEDS ORDERED: acetaminophen 325mg/10.15ml oral unit dose solution OGT PRN (14:59)
[2019-04-03] MEDS ORDERED: dextrose ORAL solution 15 GM/59 ML bottle OGT PRN ×2 (15:02)
[2019-04-03] MEDS ORDERED: potassium Cl 20 mEq SR tablet OGT PRN ×2 (15:09→15:10)
[2019-04-03] MEDS ORDERED: diphenhydrAMINE 25 MG/10 ML UD oral solution OGT SCH (15:10)
[2019-04-03] MEDS: insulin regular, human vial - multi-dose SQ SCH ×2 (15:12→21:25)
[2019-04-03] MEDS ORDERED: diphenhydrAMINE 25 MG/10 ML UD oral solution OGT PRN (15:14)
[2019-04-03] MEDS ORDERED: pregabalin 25mg capsule OGT SCH (15:14)
[2019-04-03] MEDS: NORepinephrine 8mg/ 250ml NS 250 ML IV PRN (16:32)
--- NOTE | 2019-04-03 17:52 | NUR ---
Rec fax from [facility]. Culture of suprapubic catheter grew heavy growth of MRSA and light growth of Psuedomonas. Dr Blair called to notify and no further orders rec. Pt is currently on Zosyn, Vancomycin and Levaquin IV.
--- NOTE | 2019-04-03 18:20 | NUR ---
Patient in room CICU 2010. I have received report from Karishma PLUMMER and had the opportunity to ask questions and assume patient care. Pt on vent at 35% with PEEP of 8, spo2 at 96%, vital signs stable, Levophed gtt to keep MAP greater than 65 infusing via central line, will titrate per protocol, versed gtt and fentanyl gtt for sedation and pain control, will titrate per protocol, see IV spreadsheet for further information. See Interventions for further information. Will continue to monitor.
[2019-04-03] MEDS: ICOSAPENT ETHYL PO SCH (20:00)
[2019-04-03] MEDS ORDERED: insulin glargine (Lantus) pen - multi-dose SQ SCH (21:00)
[2019-04-03] MEDS: atorvastatin 20mg tablet OGT SCH (21:17)
[2019-04-03] MEDS: sennosides 8.6mg tablet OGT SCH (21:17)
[2019-04-03] MEDS: docusate sodium 100mg/10ml UD cup OGT SCH (21:18)
[2019-04-03] MEDS: pregabalin 25mg capsule OGT SCH (21:18)
[2019-04-03] MEDS: insulin glargine (Lantus) pen - multi-dose SQ SCH (21:24)
[2019-04-03 23:13] LABS: ALBUMIN 2.2 G/DL (3.4-5.0); ANION GAP 6 (8-16); BLOOD UREA NITROGEN 33 MG/DL (7-18); BUN/CREATININE RATIO 21.2 (5.4-32.0); CALCIUM 7.6 MG/DL (8.5-10.1); CHLORIDE 107 MMOL/L (99-107); CREATININE 1.56 MG/DL (0.60-1.10); GLUCOSE 229 MG/DL (70-104); POTASSIUM 4.5 MMOL/L (3.5-5.1); SODIUM 137 MMOL/L (135-145); TOTAL CARBON DIOXIDE 23.8 MMOL/L (24-32); eGFR 44 ML/MIN
[2019-04-04] VITALS (24 sets, daily range): BP systolic 92–131; BP diastolic 45–69
[2019-04-04] MEDS: piperacillin/tazo 3.375gm/50ml 50 ML IV SCH ×4 (00:10→23:39)
[2019-04-04] MEDS: heparin, porcine 5000 units/ml vial SQ SCH ×4 (00:10→23:40)
[2019-04-04] MEDS: mineral oil/petrolatum ophthal oint EACHEYE SCH ×4 (02:30→20:51)
[2019-04-04] MEDS: insulin regular, human vial - multi-dose SQ SCH ×4 (02:32→20:53)
[2019-04-04 02:50] LABS: BASOPHILS % (AUTO) 0.7 % (0-1); EOSINOPHILS # (AUTO) 0.2 X10'3 (0-0.9); HEMOGLOBIN 8.6 g/dl (14.0-17.9); LYMPHOCYTES # (AUTO) 0.8 X10'3 (1.1-4.8); LYMPHOCYTES % (AUTO) 10.9 % (21-51); MEAN CORPUSCULAR HEMOGLOBIN 31.6 PG (27.0-31.0); MEAN CORPUSCULAR HGB CONC 33.2 g/dL (33.0-36.5); MEAN CORPUSCULAR VOLUME 95.3 FL (78-98); MEAN PLATELET VOLUME 9.6 FL (7.4-10.4); MONOCYTES # (AUTO) 0.6 X10'3 (0-0.9); MONOCYTES % (AUTO) 8.4 % (2-12); NEUTROPHILS # (AUTO) 5.6 X10'3 (1.8-7.7); PLATELET COUNT 155 X10'3 (140-440); RED BLOOD COUNT 2.73 X10'6 (4.70-6.10); RED CELL DISTRIBUTION WIDTH 15.8 % (11.5-14.5); WHITE BLOOD COUNT 7.3 X10'3 (4.5-11.0)
[2019-04-04 02:54] LABS: PARTIAL THROMBOPLASTIN TIME 36 SECONDS (22-32)
[2019-04-04 02:58] LABS: ALANINE AMINOTRANSFERASE 23 U/L (12-78); ALBUMIN 2.2 G/DL (3.4-5.0); ALBUMIN/GLOBULIN RATIO 0.5 (1.1-1.5); ALKALINE PHOSPHATASE 28 IU/L (46-116); ANION GAP 9 (8-16); ASPARTATE AMINO TRANSFERASE 27 U/L (10-37); BILIRUBIN,TOTAL 0.3 MG/DL (0.1-1.0); BLOOD UREA NITROGEN 31 MG/DL (7-18); BUN/CREATININE RATIO 21.1 (5.4-32.0); CALCIUM 7.3 MG/DL (8.5-10.1); CHLORIDE 108 MMOL/L (99-107); CREATININE 1.47 MG/DL (0.60-1.10); GLUCOSE 236 MG/DL (70-104); MAGNESIUM 2.1 MG/DL (1.5-2.4); POTASSIUM 4.6 MMOL/L (3.5-5.1); SODIUM 140 MMOL/L (135-145); TOTAL CARBON DIOXIDE 23.4 MMOL/L (24-32); TOTAL PROTEIN 6.6 G/DL (6.4-8.2); eGFR 47 ML/MIN
[2019-04-04] MEDS: ipratropium/albuterol 3ml nebule NEB SCH ×6 (03:05→23:15)
[2019-04-04 03:26] LABS: ABG BASE EXCESS -5.8 mmol/L (-2.0-3.0); ABG HCO3 19.5 mmol/L (22.0-26.0); ABG OXYGEN SATURATION 96.3 % (95-98); ABG PCO2 (T) 38.6 mmHg (35.0-45.0); ABG PH (T) 7.323 (7.350-7.450); ABG PO2 (T) 91.8 mmHg (83-108); ALLEN'S TEST Positive; FCOHb 0.5 % (0.5-1.5); FMetHb 0.3 % (0.3-1.12); FO2Hb 95.5 % (94-100); MINUTE VOLUME 11 L/min; PATIENT TEMPERATURE 37.6; PEEP 8 cm H2O; RESPIRATORY RATE 20 b/min; RESPIRATORY RATE (OBSERVED) 21 b/min; TIDAL VOLUME 450 mL
[2019-04-04] MEDS: sodium phosphate inj. 15 MMOL in dextrose 5%-water 150 ML IV PRN (04:37)
[2019-04-04] MEDS: FENTANYL-0.9 % NACL/PF 100 ML IV PRN (05:33)
[2019-04-04] MEDS: normal saline 1000ml 1,000 ML IV SCH ×2 (05:38→19:15)
[2019-04-04] MEDS ORDERED: lactulose 20gm/30ml cup PO PRN (06:15)
--- NOTE | 2019-04-04 06:30 | NUR ---
Problems reprioritized. Patient report given, questions answered & plan of care reviewed with Karishma PLUMMER.
--- NOTE | 2019-04-04 06:30 | NUR ---
Student documentation: I have reviewed and agree with all interventions, assessments performed and documented by Stefanie PLUMMER.Student Medication Administration: For this medication-pass time frame, all medication were reviewed, dispensed, administered and documented per hospital policy by Stefanie PLUMMER.
[2019-04-04] MEDS ORDERED: bisacodyl 5mg tablet.DR OGT PRN (08:00)
[2019-04-04] MEDS: K and/or MAG REPLACEMENT MC SCH (08:00)
[2019-04-04] MEDS: ICOSAPENT ETHYL PO SCH ×2 (08:00→20:00)
[2019-04-04] MEDS: K, MAG and/or Phos replacement - Verify level? MC SCH (08:00)
[2019-04-04] MEDS: LIRAGLUTIDE 0.6 MG/0.1 ML PEN.INJCTR SQ SCH (08:00)
[2019-04-04] MEDS: docusate sodium 100mg/10ml UD cup OGT SCH ×2 (08:00→20:49)
[2019-04-04] MEDS: Levetiracetam-NS 500mg/100ml 100 ML IV SCH ×2 (08:02→20:51)
[2019-04-04] MEDS: pregabalin 25mg capsule OGT SCH ×3 (08:02→20:50)
[2019-04-04] MEDS: aspirin 81mg tab.chew OGT SCH (08:03)
[2019-04-04] MEDS: fenofibrate 145mg tablet OGT SCH (08:03)
[2019-04-04] MEDS: allopurinol 300 MG tablet OGT SCH (08:03)
[2019-04-04 08:04] LABS: ALLEN'S TEST POSITIVE
[2019-04-04] MEDS: levoTHYROXINE 100mcg tablet OGT SCH (08:04)
[2019-04-04] MEDS: cyanocobalamin 500mcg tablet OGT SCH (08:04)
[2019-04-04] MEDS: lactobacillus rhamnosus 10,000 MMU CELLS/CAPSULE PO SCH ×2 (08:04→20:51)
[2019-04-04] MEDS: amiodarone 200mg tablet OGT SCH (08:04)
[2019-04-04] MEDS: ferrous sulfate 300mg/5ml UD oral liquid OGT SCH (08:11)
--- NOTE | 2019-04-04 18:30 | NUR ---
Patient in room CICU 2010. I have received report and had the opportunity to ask questions and assume patient care.
--- NOTE | 2019-04-04 20:45 | NUR ---
pt went into A-fib with a heart rate in the 130 and maintaining. BP remains 130 systolic. md notified. amiodarone gtt started. pt coreg resumed
[2019-04-04] MEDS: atorvastatin 20mg tablet OGT SCH (20:50)
[2019-04-04] MEDS: acetaminophen 325mg/10.15ml oral unit dose solution OGT PRN (20:50)
[2019-04-04] MEDS: sennosides 8.6mg tablet OGT SCH (20:50)
[2019-04-04] MEDS: insulin glargine (Lantus) pen - multi-dose SQ SCH (20:56)
[2019-04-04] MEDS: amiodarone/D5 360MG/200ML BAG 200 ML IV SCH (21:32)
[2019-04-04] MEDS: carvedilol 6.25mg tablet PO SCH (21:33)
[2019-04-05] VITALS (24 sets, daily range): BP systolic 91–151; BP diastolic 53–89
[2019-04-05] MEDS: mineral oil/petrolatum ophthal oint EACHEYE SCH ×4 (02:31→20:14)
[2019-04-05] MEDS: insulin regular, human vial - multi-dose SQ SCH ×2 (02:31→20:16)
[2019-04-05] MEDS: amiodarone/D5 360MG/200ML BAG 200 ML IV SCH ×4 (02:43→21:28)
[2019-04-05] MEDS: ipratropium/albuterol 3ml nebule NEB SCH ×6 (02:52→22:50)
[2019-04-05 03:06] LABS: ABG BASE EXCESS -4.9 mmol/L (-2.0-3.0); ABG HCO3 19.2 mmol/L (22.0-26.0); ABG OXYGEN SATURATION 94.8 % (95-98); ABG PCO2 (T) 33.4 mmHg (35.0-45.0); ABG PH (T) 7.382 (7.350-7.450); ABG PO2 (T) 81.4 mmHg (83-108); FCOHb 0.3 % (0.5-1.5); FMetHb 0.3 % (0.3-1.12); FO2Hb 94.2 % (94-100); MINUTE VOLUME 16 L/min; PATIENT TEMPERATURE 37.9; PEEP 5 cm H2O; RESPIRATORY RATE 20 b/min; RESPIRATORY RATE (OBSERVED) 30 b/min; TIDAL VOLUME 450 mL; TOTAL HEMOGLOBIN 9.6 G/dl (14.0-17.9)
[2019-04-05 03:09] LABS: BASOPHILS # (AUTO) 0.1 X10'3 (0-0.2); EOSINOPHILS # (AUTO) 0.2 X10'3 (0-0.9); EOSINOPHILS % (AUTO) 2.9 % (0-6); HEMATOCRIT 25.6 % (42.0-52.0); HEMOGLOBIN 8.6 g/dl (14.0-17.9); LYMPHOCYTES # (AUTO) 0.9 X10'3 (1.1-4.8); LYMPHOCYTES % (AUTO) 15.3 % (21-51); MEAN CORPUSCULAR HEMOGLOBIN 31.7 PG (27.0-31.0); MEAN CORPUSCULAR HGB CONC 33.4 g/dL (33.0-36.5); MEAN CORPUSCULAR VOLUME 94.9 FL (78-98); MEAN PLATELET VOLUME 9.8 FL (7.4-10.4); MONOCYTES # (AUTO) 0.5 X10'3 (0-0.9); MONOCYTES % (AUTO) 8.4 % (2-12); NEUTROPHILS # (AUTO) 4.4 X10'3 (1.8-7.7); NEUTROPHILS % (AUTO) 72.4 % (42-75); PLATELET COUNT 154 X10'3 (140-440); RED CELL DISTRIBUTION WIDTH 15.9 % (11.5-14.5); WHITE BLOOD COUNT 6.1 X10'3 (4.5-11.0)
[2019-04-05 03:17] LABS: PARTIAL THROMBOPLASTIN TIME 31 SECONDS (22-32)
[2019-04-05 03:22] LABS: ALANINE AMINOTRANSFERASE 25 U/L (12-78); ALBUMIN 2.1 G/DL (3.4-5.0); ALBUMIN/GLOBULIN RATIO 0.5 (1.1-1.5); ALKALINE PHOSPHATASE 28 IU/L (46-116); ANION GAP 9 (8-16); ASPARTATE AMINO TRANSFERASE 32 U/L (10-37); BILIRUBIN,TOTAL 0.3 MG/DL (0.1-1.0); BLOOD UREA NITROGEN 24 MG/DL (7-18); CALCIUM 7.4 MG/DL (8.5-10.1); CHLORIDE 106 MMOL/L (99-107); CREATININE 1.26 MG/DL (0.60-1.10); GLUCOSE 259 MG/DL (70-104); MAGNESIUM 2.2 MG/DL (1.5-2.4); PHOSPHORUS 1.7 MG/DL (2.3-4.5); POTASSIUM 4.4 MMOL/L (3.5-5.1); SODIUM 137 MMOL/L (135-145); TOTAL CARBON DIOXIDE 22.2 MMOL/L (24-32); TOTAL PROTEIN 6.6 G/DL (6.4-8.2); eGFR 57 ML/MIN
[2019-04-05] MEDS: sodium phosphate inj. 15 MMOL in dextrose 5%-water 150 ML IV PRN (07:15)
[2019-04-05] MEDS: piperacillin/tazo 3.375gm/50ml 50 ML IV SCH (07:15)
[2019-04-05] MEDS: carvedilol 6.25mg tablet PO SCH ×2 (07:16→20:13)
[2019-04-05] MEDS: cyanocobalamin 500mcg tablet OGT SCH (07:16)
[2019-04-05] MEDS: Levetiracetam-NS 500mg/100ml 100 ML IV SCH ×2 (07:16→20:14)
[2019-04-05] MEDS: levoTHYROXINE 100mcg tablet OGT SCH (07:16)
[2019-04-05] MEDS: lactobacillus rhamnosus 10,000 MMU CELLS/CAPSULE PO SCH ×2 (07:16→20:13)
[2019-04-05] MEDS: ferrous sulfate 300mg/5ml UD oral liquid OGT SCH (07:17)
[2019-04-05] MEDS: pregabalin 25mg capsule OGT SCH ×3 (07:17→20:13)
[2019-04-05] MEDS: heparin, porcine 5000 units/ml vial SQ SCH ×3 (07:18→23:19)
[2019-04-05] MEDS: allopurinol 300 MG tablet OGT SCH (07:34)
[2019-04-05] MEDS: fenofibrate 145mg tablet OGT SCH (07:34)
[2019-04-05] MEDS: aspirin 81mg tab.chew OGT SCH (07:34)
[2019-04-05] MEDS: K, MAG and/or Phos replacement - Verify level? MC SCH (08:00)
[2019-04-05] MEDS: docusate sodium 100mg/10ml UD cup OGT SCH ×2 (08:00→19:56)
[2019-04-05] MEDS ORDERED: levoFLOXACIN-Levaquin 750MG/D5 150 ML IV SCH (08:00)
[2019-04-05] MEDS: LIRAGLUTIDE 0.6 MG/0.1 ML PEN.INJCTR SQ SCH (08:00)
[2019-04-05] MEDS: ICOSAPENT ETHYL PO SCH ×2 (08:00→19:54)
--- NOTE | 2019-04-05 18:30 | NUR ---
Patient in room CICU 2010. I have received report from ELIAN Flores and had the opportunity to ask questions and assume patient care.
[2019-04-05] MEDS: dexmedetomidin/NS 400mcg/100ml 100 ML IV SCH (19:13)
[2019-04-05] MEDS: sennosides 8.6mg tablet OGT SCH (19:56)
[2019-04-05] MEDS: atorvastatin 20mg tablet OGT SCH (20:13)
[2019-04-05] MEDS: insulin glargine (Lantus) pen - multi-dose SQ SCH (20:18)
[2019-04-05] MEDS: FENTANYL-0.9 % NACL/PF 100 ML IV PRN (20:38)
[2019-04-05] MEDS ORDERED: VANCOMYCIN LEVEL IV ONE (23:30)
[2019-04-06] VITALS (23 sets, daily range): BP systolic 97–155; BP diastolic 50–73
[2019-04-06] MEDS: amiodarone/D5 360MG/200ML BAG 200 ML IV SCH ×4 (01:33→21:50)
[2019-04-06] MEDS: mineral oil/petrolatum ophthal oint EACHEYE SCH ×4 (02:05→19:37)
[2019-04-06] MEDS: insulin regular, human vial - multi-dose SQ SCH ×2 (02:06→08:21)
[2019-04-06] MEDS: dexmedetomidin/NS 400mcg/100ml 100 ML IV SCH ×3 (02:12→18:50)
[2019-04-06] MEDS: ipratropium/albuterol 3ml nebule NEB SCH ×6 (02:39→23:09)
[2019-04-06 02:52] LABS: BASOPHILS % (AUTO) 0.7 % (0-1); EOSINOPHILS # (AUTO) 0.2 X10'3 (0-0.9); EOSINOPHILS % (AUTO) 3.2 % (0-6); HEMATOCRIT 24.6 % (42.0-52.0); HEMOGLOBIN 8.1 g/dl (14.0-17.9); LYMPHOCYTES # (AUTO) 0.9 X10'3 (1.1-4.8); LYMPHOCYTES % (AUTO) 19.3 % (21-51); MEAN CORPUSCULAR HEMOGLOBIN 31.3 PG (27.0-31.0); MEAN CORPUSCULAR HGB CONC 32.9 g/dL (33.0-36.5); MEAN CORPUSCULAR VOLUME 95.1 FL (78-98); MONOCYTES # (AUTO) 0.3 X10'3 (0-0.9); MONOCYTES % (AUTO) 6.5 % (2-12); NEUTROPHILS # (AUTO) 3.4 X10'3 (1.8-7.7); NEUTROPHILS % (AUTO) 70.3 % (42-75); PLATELET COUNT 155 X10'3 (140-440); RED BLOOD COUNT 2.58 X10'6 (4.70-6.10); WHITE BLOOD COUNT 4.8 X10'3 (4.5-11.0)
[2019-04-06 03:05] LABS: PARTIAL THROMBOPLASTIN TIME 30 SECONDS (22-32)
[2019-04-06 03:10] LABS: ALANINE AMINOTRANSFERASE 18 U/L (12-78); ALBUMIN/GLOBULIN RATIO 0.5 (1.1-1.5); ALKALINE PHOSPHATASE 26 IU/L (46-116); ANION GAP 7 (8-16); ASPARTATE AMINO TRANSFERASE 24 U/L (10-37); BILIRUBIN,TOTAL 0.2 MG/DL (0.1-1.0); BLOOD UREA NITROGEN 21 MG/DL (7-18); BUN/CREATININE RATIO 18.4 (5.4-32.0); CALCIUM 7.2 MG/DL (8.5-10.1); CHLORIDE 107 MMOL/L (99-107); CREATININE 1.14 MG/DL (0.60-1.10); GLUCOSE 271 MG/DL (70-104); PHOSPHORUS 1.7 MG/DL (2.3-4.5); POTASSIUM 4.7 MMOL/L (3.5-5.1); PREALBUMIN 13.1 MG/DL (19-36); SODIUM 138 MMOL/L (135-145); TOTAL CARBON DIOXIDE 24.3 MMOL/L (24-32); TOTAL PROTEIN 6.3 G/DL (6.4-8.2); eGFR 64 ML/MIN
[2019-04-06] MEDS: sodium phosphate inj. 15 MMOL in dextrose 5%-water 150 ML IV PRN (03:46)
[2019-04-06 04:40] LABS: ABG BASE EXCESS -4.6 mmol/L (-2.0-3.0); ABG HCO3 19.1 mmol/L (22.0-26.0); ABG OXYGEN SATURATION 95.9 % (95-98); ABG PCO2 (T) 31.9 mmHg (35.0-45.0); ABG PH (T) 7.402 (7.350-7.450); ABG PO2 (T) 90.5 mmHg (83-108); FCOHb 0.3 % (0.5-1.5); FMetHb 0.3 % (0.3-1.12); FO2Hb 95.3 % (94-100); MINUTE VOLUME 17 L/min; PATIENT TEMPERATURE 38.3; PEEP 5 cm H2O; RESPIRATORY RATE 0 b/min; RESPIRATORY RATE (OBSERVED) 32 b/min; TIDAL VOLUME 526 mL; TOTAL HEMOGLOBIN 9.1 G/dl (14.0-17.9)
[2019-04-06] MEDS: acetaminophen 325mg/10.15ml oral unit dose solution OGT PRN (05:02)
--- NOTE | 2019-04-06 06:25 | NUR ---
Problems reprioritized. Patient report given, questions answered & plan of care reviewed with ELIAN Gibson.
[2019-04-06] MEDS: levoTHYROXINE 100mcg tablet OGT SCH (07:38)
[2019-04-06] MEDS: aspirin 81mg tab.chew OGT SCH (07:38)
[2019-04-06] MEDS: fenofibrate 145mg tablet OGT SCH (07:39)
[2019-04-06] MEDS: lactobacillus rhamnosus 10,000 MMU CELLS/CAPSULE PO SCH ×2 (07:39→19:42)
[2019-04-06] MEDS: cyanocobalamin 500mcg tablet OGT SCH (07:39)
[2019-04-06] MEDS: pregabalin 25mg capsule OGT SCH ×3 (07:39→20:27)
[2019-04-06] MEDS: allopurinol 300 MG tablet OGT SCH (07:39)
[2019-04-06] MEDS: docusate sodium 100mg/10ml UD cup OGT SCH ×2 (07:40→19:41)
[2019-04-06] MEDS: ferrous sulfate 300mg/5ml UD oral liquid OGT SCH (07:40)
[2019-04-06] MEDS: Levetiracetam-NS 500mg/100ml 100 ML IV SCH ×2 (07:40→20:41)
[2019-04-06] MEDS: ICOSAPENT ETHYL PO SCH ×2 (08:00→19:42)
[2019-04-06] MEDS: carvedilol 6.25mg tablet PO SCH ×2 (08:00→19:41)
[2019-04-06] MEDS: LIRAGLUTIDE 0.6 MG/0.1 ML PEN.INJCTR SQ SCH (08:00)
[2019-04-06] MEDS: K, MAG and/or Phos replacement - Verify level? MC SCH (08:00)
[2019-04-06] MEDS: heparin, porcine 5000 units/ml vial SQ SCH ×2 (08:01→15:47)
[2019-04-06] MEDS ORDERED: furosemide 40mg/4ml inj IV ONE (08:20)
[2019-04-06] MEDS ORDERED: sodium chloride inj. 154 MEQ in Dextrose 10%-water IV solution 961.5 ML IV SCH (09:30)
[2019-04-06] MEDS ORDERED: VANCOMYCIN LEVEL IV ONE (11:30)
[2019-04-06] MEDS: Dextrose 10%-water IV solution 1,000 ML IV SCH ×2 (11:38→23:58)
[2019-04-06] MEDS: pantoprazole 40 MG vial IV SCH (12:03)
--- NOTE | 2019-04-06 15:08 | NUR ---
F/U: According to RN, the pt is appropriately responding. Planning to wean off the ventilator. When weaning off successfully, requests BSS per RN. Continues TF,tolerating well at goal rate of 70ml/hr and very minimal residual amount (20ml documented this am). Recommend advancing diet as medically indicated to heart healthy/carb controlled, texture per speech therapy recs. Will continue to monitor. Initial & TF consult: Pt is admitted to the hospital with SOB and CAUTI. Pt has hx of peripheral neuropathy, Afrib, HTN, GERD, kidney stones, CAUTI,DM, and gout. Pt has a stage IV sacrum pressure ulcer may r/t DM2, increase protein needs. Pt is intubated with sedation and vasopressor; MAP 69. Pt had EEG done for seizure, but found none altered mental per MD notes. Pt has hx of bowel care meds (Dulcolax, Milk Of Magnesia, Enema) discussed and notified MD. Received TF consult per MD. Rec. Vital AF 1.2 Tushar at goal rate 70ml/hr; meet 100% est. nutrition need and protein need. Recs. 1.Continue tube feeding per OGTF using Vital AF 1.2 TUSHAR at goal rate 70ml/hr; to provide 1680ml fluid, 1400kcal, 1361ml free water, and 126g protein. 2. Additional water flushes 250ml Q6 3. Prealbumin qM/TH; daily wts 4. Routine bowel care 5. Advance diet as medically indicated to heart healthy/carb controlled, texture per speech therapist recs Addendum: 04/06/19 at [address] Amended: Links added. Addendum: 04/06/19 at [address] RD reviewed and agree with internal grinder set up operator note
[2019-04-06] MEDS: HYDROmorphone 1 mg/ml syringe IV PRN ×2 (15:15→21:50)
--- NOTE | 2019-04-06 18:22 | NUR ---
Problems reprioritized. Patient report given, questions answered & plan of care reviewed with Mac RN.
[2019-04-06] MEDS: atorvastatin 20mg tablet OGT SCH (20:26)
[2019-04-06] MEDS: sennosides 8.6mg tablet OGT SCH (20:27)
[2019-04-06] MEDS: insulin glargine (Lantus) pen - multi-dose SQ SCH (20:49)
--- NOTE | 2019-04-06 21:00 | NUR ---
RN Note -MD Communication/ Lantus Pt's blood sugar 167. Per Daniel Guthrie, give 20 units of Lantus but no short acting insulin. OK to give ice chips and jello if pt tolerates.
[2019-04-07] VITALS (21 sets, daily range): BP systolic 113–170; BP diastolic 55–85
[2019-04-07] MEDS: heparin, porcine 5000 units/ml vial SQ SCH ×3 (00:57→15:36)
[2019-04-07] MEDS: amiodarone/D5 360MG/200ML BAG 200 ML IV SCH ×2 (00:58→08:40)
[2019-04-07] MEDS: sodium phosphate inj. 15 MMOL in dextrose 5%-water 150 ML IV PRN ×2 (01:00→15:36)
[2019-04-07] MEDS: mineral oil/petrolatum ophthal oint EACHEYE SCH ×4 (02:00→20:00)
[2019-04-07] MEDS: insulin Lispro (HumaLOG) vial - multi-dose SQ SCH ×4 (03:02→19:02)
[2019-04-07] MEDS: ipratropium/albuterol 3ml nebule NEB SCH ×6 (03:08→23:04)
[2019-04-07] MEDS: dexmedetomidin/NS 400mcg/100ml 100 ML IV SCH (03:35)
[2019-04-07 03:58] LABS: BASOPHILS % (AUTO) 0.6 % (0-1); EOSINOPHILS # (AUTO) 0.2 X10'3 (0-0.9); EOSINOPHILS % (AUTO) 2.9 % (0-6); HEMATOCRIT 27.4 % (42.0-52.0); LYMPHOCYTES # (AUTO) 1.2 X10'3 (1.1-4.8); LYMPHOCYTES % (AUTO) 16.1 % (21-51); MEAN CORPUSCULAR HEMOGLOBIN 31.2 PG (27.0-31.0); MEAN CORPUSCULAR HGB CONC 32.8 g/dL (33.0-36.5); MEAN CORPUSCULAR VOLUME 95.1 FL (78-98); MEAN PLATELET VOLUME 9.7 FL (7.4-10.4); MONOCYTES # (AUTO) 0.4 X10'3 (0-0.9); MONOCYTES % (AUTO) 5.6 % (2-12); NEUTROPHILS # (AUTO) 5.4 X10'3 (1.8-7.7); NEUTROPHILS % (AUTO) 74.8 % (42-75); PLATELET COUNT 192 X10'3 (140-440); RED BLOOD COUNT 2.88 X10'6 (4.70-6.10); RED CELL DISTRIBUTION WIDTH 16.1 % (11.5-14.5); WHITE BLOOD COUNT 7.2 X10'3 (4.5-11.0)
[2019-04-07 04:12] LABS: ALANINE AMINOTRANSFERASE 23 U/L (12-78); ALBUMIN 2.3 G/DL (3.4-5.0); ALBUMIN/GLOBULIN RATIO 0.5 (1.1-1.5); ALKALINE PHOSPHATASE 29 IU/L (46-116); ANION GAP 8 (8-16); ASPARTATE AMINO TRANSFERASE 21 U/L (10-37); BILIRUBIN,TOTAL 0.2 MG/DL (0.1-1.0); BLOOD UREA NITROGEN 20 MG/DL (7-18); BUN/CREATININE RATIO 19.8 (5.4-32.0); CALCIUM 7.7 MG/DL (8.5-10.1); CHLORIDE 109 MMOL/L (99-107); CREATININE 1.01 MG/DL (0.60-1.10); GLUCOSE 232 MG/DL (70-104); MAGNESIUM 1.8 MG/DL (1.5-2.4); PARTIAL THROMBOPLASTIN TIME 32 SECONDS (22-32); PHOSPHORUS 1.9 MG/DL (2.3-4.5); POTASSIUM 3.9 MMOL/L (3.5-5.1); SODIUM 142 MMOL/L (135-145); TOTAL CARBON DIOXIDE 24.7 MMOL/L (24-32); TOTAL PROTEIN 6.8 G/DL (6.4-8.2); eGFR 73 ML/MIN
[2019-04-07] MEDS: HYDROmorphone 1 mg/ml syringe IV PRN ×4 (05:15→20:46)
[2019-04-07] MEDS: ICOSAPENT ETHYL PO SCH ×2 (08:00→20:00)
[2019-04-07] MEDS: LIRAGLUTIDE 0.6 MG/0.1 ML PEN.INJCTR SQ SCH (08:00)
[2019-04-07] MEDS: ferrous sulfate 300mg/5ml UD oral liquid OGT SCH (08:34)
[2019-04-07] MEDS: pantoprazole 40 MG vial IV SCH (08:35)
[2019-04-07] MEDS: aspirin 81mg tab.chew OGT SCH (08:36)
[2019-04-07] MEDS: docusate sodium 100mg/10ml UD cup OGT SCH ×2 (08:36→20:21)
[2019-04-07] MEDS: Levetiracetam-NS 500mg/100ml 100 ML IV SCH (08:36)
[2019-04-07] MEDS: amiodarone 200mg tablet OGT SCH (08:37)
[2019-04-07] MEDS: lactobacillus rhamnosus 10,000 MMU CELLS/CAPSULE PO SCH ×2 (08:37→20:22)
[2019-04-07] MEDS: levoTHYROXINE 100mcg tablet OGT SCH (08:37)
[2019-04-07] MEDS: allopurinol 300 MG tablet OGT SCH (08:38)
[2019-04-07] MEDS: pregabalin 25mg capsule OGT SCH ×3 (08:38→20:24)
[2019-04-07] MEDS: fenofibrate 145mg tablet OGT SCH (08:38)
[2019-04-07] MEDS: cyanocobalamin 500mcg tablet OGT SCH (08:38)
[2019-04-07] MEDS: carvedilol 6.25mg tablet PO SCH ×2 (08:39→20:22)
[2019-04-07] MEDS: K, MAG and/or Phos replacement - Verify level? MC SCH (08:40)
[2019-04-07] MEDS ORDERED: levoFLOXACIN 750MG TABLET PO SCH (11:00)
[2019-04-07] MEDS: levoFLOXACIN 750MG TABLET PO SCH (12:12)
--- NOTE | 2019-04-07 17:30 | NUR ---
F/U (04/07): Pt is awake, alert and oriented per MD. Pt was off the ventilator yesterday and discontinued TF. Pt passed BSS, now patient on carb controlled diet, sitting upright and taking small bites and sips according to speech therapist. JODY noted A1C 9.1, will provide verbal and written education upon d/c. LBM 04/06. Will continue to monitor. Recs. 1. Continue carb controlled diet 2. Wts per rx 3. Routine bowel care 4. Monitor PO intake and need for additional protein or ONS if suboptimal PO Intake Addendum: 04/07/19 at [address] Amended: Links added.
--- NOTE | 2019-04-07 17:45 | NUR ---
Received from [facility], report from Shahab. Oriented pt to room and unit.
[2019-04-07] MEDS: amiodarone 200mg tablet PO SCH (20:21)
[2019-04-07] MEDS: levetiracetam 250mg tablet PO SCH (20:23)
[2019-04-07] MEDS: atorvastatin 20mg tablet OGT SCH (20:23)
[2019-04-07] MEDS: sennosides 8.6mg tablet OGT SCH (20:25)
[2019-04-07] MEDS: insulin glargine (Lantus) pen - multi-dose SQ SCH (21:02)
[2019-04-08] MEDS: heparin, porcine 5000 units/ml vial SQ SCH ×3 (00:13→15:49)
[2019-04-08] MEDS: HYDROmorphone 1 mg/ml syringe IV PRN ×5 (01:38→21:20)
[2019-04-08] MEDS: mineral oil/petrolatum ophthal oint EACHEYE SCH ×4 (02:00→20:00)
[2019-04-08] MEDS: ipratropium/albuterol 3ml nebule NEB SCH ×6 (03:03→23:31)
--- NOTE | 2019-04-08 04:02 | NUR ---
REVIEWED AND AGREE WITH SRN ASSESSMENT.
[2019-04-08] MEDS ORDERED: acetaminophen 325mg tablet PO PRN ×2 (04:11)
[2019-04-08] MEDS ORDERED: bisacodyl 5mg tablet.DR PO PRN (04:13)
[2019-04-08] MEDS ORDERED: dextrose ORAL solution 15 GM/59 ML bottle PO PRN ×2 (04:14)
[2019-04-08] MEDS ORDERED: diphenhydrAMINE 25mg capsule PO PRN (04:15)
[2019-04-08] MEDS ORDERED: potassium Cl 20 mEq SR tablet PO PRN ×2 (04:19→04:20)
[2019-04-08 06:00] VITALS: BP 162/76
--- NOTE | 2019-04-08 06:00 | NUR ---
Patient in room ORTHO 4015. I have received report from Minda Overton and had the opportunity to ask questions and assume patient care.
[2019-04-08 06:24] LABS: PARTIAL THROMBOPLASTIN TIME 31 SECONDS (22-32)
[2019-04-08 06:27] LABS: ALANINE AMINOTRANSFERASE 7 U/L (12-78); ALBUMIN 2.3 G/DL (3.4-5.0); ALBUMIN/GLOBULIN RATIO 0.5 (1.1-1.5); ALKALINE PHOSPHATASE 31 IU/L (46-116); ANION GAP 10 (8-16); ASPARTATE AMINO TRANSFERASE 20 U/L (10-37); BILIRUBIN,TOTAL 0.4 MG/DL (0.1-1.0); BLOOD UREA NITROGEN 16 MG/DL (7-18); BUN/CREATININE RATIO 15.4 (5.4-32.0); CHLORIDE 110 MMOL/L (99-107); CREATININE 1.04 MG/DL (0.60-1.10); GLUCOSE 162 MG/DL (70-104); MAGNESIUM 1.8 MG/DL (1.5-2.4); PHOSPHORUS 1.9 MG/DL (2.3-4.5); POTASSIUM 4.2 MMOL/L (3.5-5.1); SODIUM 144 MMOL/L (135-145); TOTAL CARBON DIOXIDE 23.9 MMOL/L (24-32); eGFR 71 ML/MIN
--- NOTE | 2019-04-08 06:29 | NUR ---
Problems reprioritized. Patient report given, questions answered & plan of care reviewed with ELIAN Jacques.
[2019-04-08 06:36] LABS: BASOPHILS % (AUTO) 0.5 % (0-1); EOSINOPHILS # (AUTO) 0.2 X10'3 (0-0.9); EOSINOPHILS % (AUTO) 2.7 % (0-6); HEMATOCRIT 27.4 % (42.0-52.0); HEMOGLOBIN 9.4 g/dl (14.0-17.9); LYMPHOCYTES # (AUTO) 1.3 X10'3 (1.1-4.8); LYMPHOCYTES % (AUTO) 14.4 % (21-51); MEAN CORPUSCULAR HEMOGLOBIN 31.9 PG (27.0-31.0); MEAN CORPUSCULAR HGB CONC 34.1 g/dL (33.0-36.5); MEAN CORPUSCULAR VOLUME 93.4 FL (78-98); MEAN PLATELET VOLUME 9.3 FL (7.4-10.4); MONOCYTES # (AUTO) 0.5 X10'3 (0-0.9); MONOCYTES % (AUTO) 5.8 % (2-12); NEUTROPHILS # (AUTO) 6.8 X10'3 (1.8-7.7); NEUTROPHILS % (AUTO) 76.6 % (42-75); PLATELET COUNT 239 X10'3 (140-440); RED BLOOD COUNT 2.94 X10'6 (4.70-6.10); RED CELL DISTRIBUTION WIDTH 15.9 % (11.5-14.5); WHITE BLOOD COUNT 8.9 X10'3 (4.5-11.0)
[2019-04-08] MEDS: LIRAGLUTIDE 0.6 MG/0.1 ML PEN.INJCTR SQ SCH (08:00)
[2019-04-08] MEDS: K, MAG and/or Phos replacement - Verify level? MC SCH (08:00)
[2019-04-08] MEDS: ICOSAPENT ETHYL PO SCH ×2 (08:00→20:00)
[2019-04-08] MEDS: docusate sod 250mg capsule PO SCH ×2 (08:00→21:10)
[2019-04-08] MEDS: pantoprazole 40 MG vial IV SCH (08:15)
[2019-04-08] MEDS: lactobacillus rhamnosus 10,000 MMU CELLS/CAPSULE PO SCH ×2 (08:19→21:10)
[2019-04-08] MEDS: amiodarone 200mg tablet PO SCH ×2 (08:19→21:10)
[2019-04-08] MEDS: carvedilol 6.25mg tablet PO SCH ×2 (08:19→21:10)
[2019-04-08] MEDS: pregabalin 25mg capsule PO SCH ×3 (08:20→21:11)
[2019-04-08] MEDS: levoTHYROXINE 100mcg tablet PO SCH (08:20)
[2019-04-08] MEDS: ferrous sulfate 325mg tablet PO SCH (08:20)
[2019-04-08] MEDS: levetiracetam 250mg tablet PO SCH ×2 (08:20→21:11)
[2019-04-08] MEDS: cyanocobalamin 500mcg tablet PO SCH (08:21)
[2019-04-08] MEDS: aspirin 81mg tab.chew PO SCH (08:22)
[2019-04-08] MEDS: allopurinol 300 MG tablet PO SCH (08:22)
[2019-04-08] MEDS: fenofibrate 145mg tablet PO SCH (08:22)
[2019-04-08] MEDS: insulin Lispro (HumaLOG) vial - multi-dose SQ SCH ×3 (09:48→19:16)
[2019-04-08 10:00] VITALS: BP 122/67
[2019-04-08] MEDS: levoFLOXACIN 750MG TABLET PO SCH (11:54)
[2019-04-08 18:00] VITALS: BP 166/69
--- NOTE | 2019-04-08 18:22 | NUR ---
Problems reprioritized. Patient report given, questions answered & plan of care reviewed with Minda Overton
[2019-04-08 21:10] VITALS: BP 148/97
[2019-04-08] MEDS: atorvastatin 20mg tablet PO SCH (21:11)
[2019-04-08] MEDS: sennosides 8.6mg tablet PO SCH (21:12)
[2019-04-08] MEDS: insulin glargine (Lantus) pen - multi-dose SQ SCH (21:17)
[2019-04-08 22:00] VITALS: BP 156/66
[2019-04-09] MEDS: heparin, porcine 5000 units/ml vial SQ SCH ×3 (00:30→15:43)
[2019-04-09] MEDS: HYDROmorphone 1 mg/ml syringe IV PRN ×3 (01:51→09:37)
[2019-04-09] MEDS: mineral oil/petrolatum ophthal oint EACHEYE SCH ×4 (02:00→20:00)
[2019-04-09] MEDS: ipratropium/albuterol 3ml nebule NEB SCH ×6 (02:53→23:24)
--- NOTE | 2019-04-09 04:36 | NUR ---
reviewed and agree with assessment from SRN
[2019-04-09 06:00] VITALS: BP 149/71
[2019-04-09 06:19] LABS: PARTIAL THROMBOPLASTIN TIME 30 SECONDS (22-32)
[2019-04-09 06:28] LABS: ALANINE AMINOTRANSFERASE 18 U/L (12-78); ALBUMIN 2.5 G/DL (3.4-5.0); ALBUMIN/GLOBULIN RATIO 0.5 (1.1-1.5); ALKALINE PHOSPHATASE 33 IU/L (46-116); ANION GAP 9 (8-16); ASPARTATE AMINO TRANSFERASE 22 U/L (10-37); BILIRUBIN,TOTAL 0.4 MG/DL (0.1-1.0); BLOOD UREA NITROGEN 21 MG/DL (7-18); BUN/CREATININE RATIO 20.4 (5.4-32.0); CALCIUM 8.3 MG/DL (8.5-10.1); CHLORIDE 109 MMOL/L (99-107); CREATININE 1.03 MG/DL (0.60-1.10); GLUCOSE 133 MG/DL (70-104); MAGNESIUM 1.7 MG/DL (1.5-2.4); PHOSPHORUS 2.6 MG/DL (2.3-4.5); POTASSIUM 4.3 MMOL/L (3.5-5.1); SODIUM 142 MMOL/L (135-145); TOTAL CARBON DIOXIDE 23.8 MMOL/L (24-32); TOTAL PROTEIN 7.2 G/DL (6.4-8.2); eGFR 71 ML/MIN
[2019-04-09 06:43] LABS: BASOPHILS # (AUTO) 0.1 X10'3 (0-0.2); BASOPHILS % (AUTO) 0.8 % (0-1); EOSINOPHILS # (AUTO) 0.2 X10'3 (0-0.9); HEMATOCRIT 28.7 % (42.0-52.0); HEMOGLOBIN 9.8 g/dl (14.0-17.9); LYMPHOCYTES # (AUTO) 1.5 X10'3 (1.1-4.8); LYMPHOCYTES % (AUTO) 13.6 % (21-51); MEAN CORPUSCULAR HEMOGLOBIN 31.7 PG (27.0-31.0); MEAN CORPUSCULAR VOLUME 93.2 FL (78-98); MEAN PLATELET VOLUME 9.4 FL (7.4-10.4); MONOCYTES # (AUTO) 0.6 X10'3 (0-0.9); MONOCYTES % (AUTO) 5.4 % (2-12); NEUTROPHILS # (AUTO) 8.6 X10'3 (1.8-7.7); NEUTROPHILS % (AUTO) 78.2 % (42-75); PLATELET COUNT 274 X10'3 (140-440); RED BLOOD COUNT 3.08 X10'6 (4.70-6.10); RED CELL DISTRIBUTION WIDTH 15.9 % (11.5-14.5); WHITE BLOOD COUNT 10.9 X10'3 (4.5-11.0)
--- NOTE | 2019-04-09 06:44 | NUR ---
Problems reprioritized. Patient report given, questions answered & plan of care reviewed with ELIAN Godron.
[2019-04-09] MEDS: LIRAGLUTIDE 0.6 MG/0.1 ML PEN.INJCTR SQ SCH (08:00)
[2019-04-09] MEDS: docusate sod 250mg capsule PO SCH ×2 (08:00→20:42)
[2019-04-09] MEDS: ICOSAPENT ETHYL PO SCH ×2 (08:00→20:00)
[2019-04-09] MEDS: K, MAG and/or Phos replacement - Verify level? MC SCH (08:00)
[2019-04-09] MEDS: insulin Lispro (HumaLOG) vial - multi-dose SQ SCH ×2 (09:25→14:43)
[2019-04-09] MEDS: pantoprazole 40 MG vial IV SCH (09:28)
[2019-04-09] MEDS: carvedilol 6.25mg tablet PO SCH ×2 (09:32→20:42)
[2019-04-09] MEDS: lactobacillus rhamnosus 10,000 MMU CELLS/CAPSULE PO SCH ×2 (09:32→20:41)
[2019-04-09] MEDS: amiodarone 200mg tablet PO SCH ×2 (09:32→20:42)
[2019-04-09] MEDS: ferrous sulfate 325mg tablet PO SCH (09:32)
[2019-04-09] MEDS: levetiracetam 250mg tablet PO SCH ×2 (09:33→20:42)
[2019-04-09] MEDS: cyanocobalamin 500mcg tablet PO SCH (09:33)
[2019-04-09] MEDS: levoTHYROXINE 100mcg tablet PO SCH (09:33)
[2019-04-09] MEDS: pregabalin 25mg capsule PO SCH ×3 (09:33→20:42)
[2019-04-09] MEDS: allopurinol 300 MG tablet PO SCH (09:34)
[2019-04-09] MEDS: aspirin 81mg tab.chew PO SCH (09:34)
[2019-04-09] MEDS: fenofibrate 145mg tablet PO SCH (09:34)
[2019-04-09 10:00] VITALS: BP 149/68
[2019-04-09] MEDS: levoFLOXACIN 750MG TABLET PO SCH (11:18)
--- NOTE | 2019-04-09 13:05 | NUR ---
F/u: Pt seen by RD for written/verbal DM and high protein eds w/ RD contact information provided. Pt unable to stay awake during RD visit; written eds and RD information left at bedside. Would benefit from reinforcement once more appropriate. PO 0-25% avg meals s/p extubation past 2 days not meeting needs. LBM 04/08 receiving senna and refused colace today. Ensure high protein TIDWM added for protein needs given low PO and DX; pending MD verification prior to sending on trays. Will continue to monitor. Recs. 1. Continue carb controlled diet 2. ensure high protein TIDWM; pend MD verification prior to sending on trays 3. Routine bowel care 4. weekly wts Addendum: 04/09/19 at [address] Amended: Links added.
[2019-04-09] MEDS ORDERED: HYDROcodone/acetaminophen 5mg/325mg tablet PO PRN (15:05)
[2019-04-09] MEDS: HYDROcodone/acetaminophen 10/325mg tab PO PRN ×2 (15:42→20:42)
[2019-04-09 18:00] VITALS: BP 145/61
--- NOTE | 2019-04-09 18:15 | NUR ---
RECEIVED REPORT FROM KATHRINE PLUMMER AND ASSUMED PATIENT CARE
--- NOTE | 2019-04-09 18:45 | NUR ---
SPOKE TO PATIENT REGARDING INSULIN ADMINISTRATION. DID NOT EAT ANY DINNER. PRE PRANDIAL BLOOD SUGAR 125. PER PROTOCOL PATIENT QUALIFIES FOR 1 UNIT OF INSULIN. EDUCATED PATIENT ON HOSPITALS DIABETIC PROTOCOL. PATIENT REFUSING 1 UNIT OF INSULIN. WILL CHECK BLOOD SUGAR AT 2100.
[2019-04-09] MEDS: sennosides 8.6mg tablet PO SCH (20:41)
[2019-04-09] MEDS: atorvastatin 20mg tablet PO SCH (20:41)
[2019-04-09] MEDS: insulin glargine (Lantus) pen - multi-dose SQ SCH (20:41)
[2019-04-09 22:00] VITALS: BP 136/66
[2019-04-10] MEDS: heparin, porcine 5000 units/ml vial SQ SCH (00:42)
[2019-04-10] MEDS: HYDROcodone/acetaminophen 10/325mg tab PO PRN ×3 (00:46→09:16)
[2019-04-10] MEDS: mineral oil/petrolatum ophthal oint EACHEYE SCH ×3 (02:00→13:46)
[2019-04-10] MEDS: ipratropium/albuterol 3ml nebule NEB SCH ×3 (03:26→11:56)
[2019-04-10 06:00] VITALS: BP 148/75
--- NOTE | 2019-04-10 06:19 | NUR ---
REPORT GIVEN TO KATHRINE PLUMMER
[2019-04-10 06:50] LABS: PREALBUMIN 17.2 MG/DL (19-36)
[2019-04-10] MEDS ORDERED: pantoprazole 40mg Tablet.DR PO SCH (07:30)
[2019-04-10] MEDS ORDERED: apixaban 5mg tablet PO SCH (08:00)
[2019-04-10] MEDS: K, MAG and/or Phos replacement - Verify level? MC SCH (08:00)
[2019-04-10] MEDS: ICOSAPENT ETHYL PO SCH (08:00)
[2019-04-10] MEDS: LIRAGLUTIDE 0.6 MG/0.1 ML PEN.INJCTR SQ SCH (08:00)
[2019-04-10] MEDS: amiodarone 200mg tablet PO SCH (08:37)
[2019-04-10] MEDS: pregabalin 25mg capsule PO SCH (08:43)
[2019-04-10] MEDS: allopurinol 300 MG tablet PO SCH (08:44)
[2019-04-10] MEDS: aspirin 81mg tab.chew PO SCH (08:46)
[2019-04-10] MEDS: ferrous sulfate 325mg tablet PO SCH (08:50)
[2019-04-10] MEDS: fenofibrate 145mg tablet PO SCH (08:51)
[2019-04-10] MEDS: lactobacillus rhamnosus 10,000 MMU CELLS/CAPSULE PO SCH (08:53)
[2019-04-10] MEDS: carvedilol 6.25mg tablet PO SCH (08:53)
[2019-04-10] MEDS: levetiracetam 250mg tablet PO SCH (08:54)
[2019-04-10] MEDS: levoTHYROXINE 100mcg tablet PO SCH (08:55)
[2019-04-10] MEDS: docusate sod 250mg capsule PO SCH (08:56)
[2019-04-10] MEDS: cyanocobalamin 500mcg tablet PO SCH (08:57)
[2019-04-10] MEDS: insulin Lispro (HumaLOG) vial - multi-dose SQ SCH (09:12)
[2019-04-10 10:00] VITALS: BP 149/73
[2019-04-10 11:58] VITALS: BP 148/71
[2019-04-10] MEDS: levoFLOXACIN 750MG TABLET PO SCH (12:10)
--- NOTE | 2019-04-10 12:15 | NUR ---
Student Medication Administration:For this medication-pass time frame [id number], all medications were reviewed, administered and documented per hospital policy by Hank Jose. Student documentation:I have reviewed and agree with all interventions, assessments performed and documented by Hank Jose.
--- NOTE | 2019-04-10 12:51 | NUR ---
Patient report given, questions answered & plan of care reviewed with
--- NOTE | 2019-04-10 14:00 | NUR ---
Received discharge orders from Dr. Blair. Pt to return to [facility] today. Saline lock RFA dc'd with pressure held for approximately 10 minutes d/t pt taking Eliquis. Pressure bandage applied to RFA after bleeding stopped. [facility] arrived to transport pt back to [facility]. Pt transferred to [facility] at 1400 for transport.
--- NOTE | 2019-04-10 15:02 | NUR ---
F/u: Pt seen by JODY for verbal DM/high protein ed reinforcement along w/ RD contact information provided prior to d/c today. JODY encouraged pt to attend CDE course. Addendum: 04/10/19 at [address] Amended: Links added.
== END 2019-04-10 14:09 | DRG 870 ==
LOC: ER 01:06 → ED HOLD 06:11 → CICU 2S 11:56 → ORTHO 4S 04-07 17:38
PROVIDERS: ADMIT Internal Medicine Critical Care Medicine; ATTEND Internal Medicine Critical Care Medicine
PROC: 5A1955Z Respiratory Ventilation, Greater than 96 Consecutive Hours (ICD-10-PCS; principal; 2019-04-02)
PROC: 0BH17EZ Insertion of Endotracheal Airway into Trachea, Via Natural or Artificial Opening (ICD-10-PCS; 2019-04-02)
PROC: 0T2BX0Z Change Drainage Device in Bladder, External Approach (ICD-10-PCS; 2019-04-02)
PROC: 4A10X4Z Monitoring of Central Nervous Electrical Activity, External Approach (ICD-10-PCS; 2019-04-02)
PROC: 02HV33Z Insertion of Infusion Device into Superior Vena Cava, Percutaneous Approach (ICD-10-PCS; 2019-04-02)
DX: A41.9 Sepsis, unspecified organism (principal); L89.154 Pressure ulcer of sacral region, stage 4; J69.0 Pneumonitis due to inhalation of food and vomit; J96.01 Acute respiratory failure with hypoxia; J96.02 Acute respiratory failure with hypercapnia; G93.41 Metabolic encephalopathy; T83.511A Infection and inflammatory reaction due to indwelling urethral catheter, initial encounter; E87.1 Hypo-osmolality and hyponatremia; I13.0 Hypertensive heart and chronic kidney disease with heart failure and stage 1 through stage 4 chronic kidney disease, or unspecified chronic kidney disease; I47.2 Ventricular tachycardia; N17.9 Acute kidney failure, unspecified; Z68.41 Body mass index [BMI] 40.0-44.9, adult; E11.21 Type 2 diabetes mellitus with diabetic nephropathy; E11.22 Type 2 diabetes mellitus with diabetic chronic kidney disease; F32.9 Major depressive disorder, single episode, unspecified; I95.9 Hypotension, unspecified; E11.42 Type 2 diabetes mellitus with diabetic polyneuropathy; E66.01 Morbid (severe) obesity due to excess calories; E11.51 Type 2 diabetes mellitus with diabetic peripheral angiopathy without gangrene; F41.9 Anxiety disorder, unspecified; R65.20 Severe sepsis without septic shock; I48.0 Paroxysmal atrial fibrillation; I49.3 Ventricular premature depolarization; I50.9 Heart failure, unspecified; J40 Bronchitis, not specified as acute or chronic; K21.9 Gastro-esophageal reflux disease without esophagitis; M10.9 Gout, unspecified; N18.9 Chronic kidney disease, unspecified; Y84.6 Urinary catheterization as the cause of abnormal reaction of the patient, or of later complication, without mention of misadventure at the time of the procedure; Z79.01 Long term (current) use of anticoagulants; Z80.1 Family history of malignant neoplasm of trachea, bronchus and lung; Z83.3 Family history of diabetes mellitus; Z87.442 Personal history of urinary calculi; Z89.511 Acquired absence of right leg below knee; Z89.512 Acquired absence of left leg below knee; Z89.611 Acquired absence of right leg above knee; Z89.612 Acquired absence of left leg above knee; Z91.013 Allergy to seafood; Y92.89 Other specified places as the place of occurrence of the external cause; Z79.899 Other long term (current) drug therapy
CPT/HCPCS: 36415; 36600; 70450; 71045; 71250; 80048; 80053; 80305; 81001; 82803; 82948; 83036; 83605; 83735; 83880; 84100; 84132; 84134; 84145; 84443; 84478; 84484; 85018; 85025; 85379; 85610; 85730; 87040; 87070; 87077; 87081; 87088; 87186; 92508; 92616; 93005; 93306; 94002; 94003; 94640; 94760; 95816; 96365; 97110; 97112; 97162; 97530; 99285; C9113; G0378; J0282; J1170; J1200; J1644; J1815; J1940; J1953; J1956; J2250; J2543; J2704; J2765; J3010; J3370; J7050; J7060; J7131; Q0163

== ENCOUNTER 2020-08-08 15:57 | Inpatient (IN) | payer OTHER, MEDICARE ==
[~2020-08-08] VITALS: Ht 121.9 cm; Wt 224.0 kg
[~2020-08-08 15:57] MED LIST changes: -ALLO100T PO; +ALLO300T11 PO; -AMIO200T61 PO; +ASPI-920 PO; +ATOR20TA PO; +BACL10TA PO; +BISA5TAB56 PO; -CALC355O3 PO; +CARV6.253 PO; -CEPH500C5 PO; -COLL30OI TP; +CYAN-51 PO; +DEXT1DRO13 EACHEYE; +DIPH25CA46 PO; +DOCU250C87 PO; -DULR RC; +FENO160T5 PO; +FLUTICASONE SPRAY NAS; -GABA-532 PO; +ICOS1CAP PO; -INSU100V13 SQ; +LANTUS SQ; +LIRA0.6P2 SUBCUT; +LISI-790 PO; -LORA0.5T PO; +MAGN296S68 PO; +MAGN400C PO; -MAGN800O PO; +METF500T PO; -MIRT15TA PO; -MULT-1085 PO; -NITR100C6 PO; -OXYC-145 PO; -POLY17PO10 PO; +PREG100C55 PO; +PREG50CA64 PO; +SENN-263 PO; +SYN0.088T PO; +TAPE100T2 PO; +TURM538C PO; -VITC500T PO; -[UNRECOGNIZED DRUG - CODE] TOP; -[UNRECOGNIZED DRUG - CODE] TOP
[2020-08-08] MEDS ORDERED: normal saline 1000ML IV soln IV ONE (16:35)
[2020-08-08 17:11] LABS: BASOPHILS % (AUTO) 0.4 % (0-1); EOSINOPHILS # (AUTO) 0.5 X10'3 (0-0.9); EOSINOPHILS % (AUTO) 3.7 % (0-6); HEMATOCRIT 27.5 % (42.0-52.0); HEMOGLOBIN 8.8 g/dl (14.0-17.9); LYMPHOCYTES # (AUTO) 2.7 X10'3 (1.1-4.8); LYMPHOCYTES % (AUTO) 21.3 % (21-51); MEAN CORPUSCULAR HEMOGLOBIN 30.3 PG (27.0-31.0); MEAN CORPUSCULAR VOLUME 94.6 FL (78-98); MEAN PLATELET VOLUME 9.9 FL (7.4-10.4); MONOCYTES # (AUTO) 0.8 X10'3 (0-0.9); MONOCYTES % (AUTO) 6.2 % (2-12); NEUTROPHILS # (AUTO) 8.8 X10'3 (1.8-7.7); NEUTROPHILS % (AUTO) 68.4 % (42-75); PLATELET COUNT 264 X10'3 (140-440); RED CELL DISTRIBUTION WIDTH 15.2 % (11.5-14.5); WHITE BLOOD COUNT 12.8 X10'3 (4.5-11.0)
[2020-08-08 17:50] LABS: CLARITY,URINE CLOUDY (Clear); COLOR,URINE YELLOW (Yellow); GLUCOSE, URINE NEGATIVE (Neg); KETONES,URINE NEGATIVE (Neg); LEUKOCYTE ESTERASE ,URINE SMALL (Neg); NITRITES, URINE NEGATIVE (Neg); OCCULT BLOOD,URINE SMALL (Neg); PH,URINE 5.5 (4.8-8.0); PROTEIN,URINE TRACE mg/dl (Neg); UROBILINOGEN,URINE 0.2 E.U/dL (0.2-1.0)
[2020-08-08 17:56] LABS: ALANINE AMINOTRANSFERASE 26 U/L (12-78); ALBUMIN 3.2 G/DL (3.4-5.0); ALBUMIN/GLOBULIN RATIO 0.7 (1.1-1.5); ALKALINE PHOSPHATASE 30 IU/L (46-116); ANION GAP 9 (8-16); ASPARTATE AMINO TRANSFERASE 21 U/L (10-37); BILIRUBIN,TOTAL 0.3 MG/DL (0.1-1.0); BLOOD UREA NITROGEN 81 MG/DL (7-18); CALCIUM 9.3 MG/DL (8.5-10.1); CHLORIDE 105 MMOL/L (99-107); CREATININE 2.79 MG/DL (0.60-1.10); GLUCOSE 111 MG/DL (70-104); MAGNESIUM 2.7 MG/DL (1.5-2.4); POTASSIUM 5.9 MMOL/L (3.5-5.1); SODIUM 135 MMOL/L (135-145); TOTAL CARBON DIOXIDE 20.6 MMOL/L (24-32); TOTAL PROTEIN 7.7 G/DL (6.4-8.2); eGFR 23 ML/MIN
[2020-08-08 18:05] LABS: UA COLLECTION TYPE FOLEY CATH
[2020-08-08 18:06] LABS: COARSE GRANULAR CAST 0-3 /LPF (NEGATIVE); FINE GRANULAR CAST 0-3 /LPF (NEGATIVE); SQUAMOUS EPITHELIAL CELL,UR FEW /LPF (FEW)
[2020-08-08 18:07] LABS: MUCUS STRANDS FEW /LPF (Neg); TRANSITIONAL EPI CELLS,URINE FEW /HPF; YEAST MANY /HPF (NEGATIVE)
[2020-08-08 18:08] LABS: RBC,URINE 0-2 /HPF (0-2); WBC CLUMPS,URINE FEW /HPF (NEGATIVE); WBC,URINE 50-100 /HPF (0-4)
[2020-08-08 18:09] LABS: BACTERIA,URINE NONE SEEN /HPF (Neg)
[2020-08-08] MEDS ORDERED: vancomycin/NS 1 GM ADD-VANTAGE 250 ML IV ONE (18:15)
[2020-08-08] MEDS ORDERED: albuterol 2.5 MG/3 ML nebule NEB ONE (18:15)
[2020-08-08] MEDS ORDERED: CefTRIAXone 2gm/D5W 50ml BAG 50 ML IV ONE (18:15)
[2020-08-08] MEDS ORDERED: calcium chloride 100 MG/1 ML inj IV ONE (18:15)
[2020-08-08] MEDS ORDERED: LEVO125T PO (19:09)
[2020-08-08] MEDS ORDERED: LEVE500T99 PO (19:09)
[2020-08-08] MEDS ORDERED: PREG50CA64 PO ×2 (19:09)
[2020-08-08] MEDS ORDERED: APIX5TAB3 PO (19:09)
[2020-08-08] MEDS ORDERED: AMIO200T61 PO (19:09)
[2020-08-08] MEDS ORDERED: BUPR1PAT TOP (19:09)
[2020-08-08] MEDS ORDERED: ondansetron/PF 4mg/2ml inj IV PRN (20:00)
[2020-08-08] MEDS ORDERED: magnesium hydroxide 30ml (MOM) UD suspension PO PRN (20:00)
[2020-08-08] MEDS ORDERED: mag hydrox/Alum hydrox/simeth 30ml oral suspension PO PRN (20:00)
[2020-08-08] MEDS: acetaminophen 325mg tablet PO PRN (20:30)
[2020-08-08] MEDS: normal saline 1000ml 1,000 ML IV SCH (20:56)
[2020-08-08] MEDS ORDERED: magnesium citrate 296ml oral solution PO PRN (21:20)
[2020-08-08] MEDS ORDERED: bisacodyl 5mg tablet.DR PO PRN (21:20)
[2020-08-08] MEDS: carvedilol 6.25mg tablet PO SCH (21:54)
[2020-08-08] MEDS: docusate sod 250mg capsule PO SCH (21:54)
[2020-08-08] MEDS: atorvastatin 20mg tablet PO SCH (21:54)
[2020-08-08] MEDS: pregabalin 25mg capsule PO SCH (23:21)
[2020-08-08] MEDS: magnesium oxide 400mg tablet PO SCH (23:22)
[2020-08-08] MEDS: levetiracetam 250mg tablet PO SCH (23:22)
--- NOTE | 2020-08-08 23:25 | NUR ---
BREAK RELIEF PM MEDS RODRIGO PATIENT AGREED TO TAKE PM MEDS
[2020-08-09 05:54] LABS: BASOPHILS # (AUTO) 0.1 X10'3 (0-0.2); BASOPHILS % (AUTO) 1.2 % (0-1); EOSINOPHILS # (AUTO) 0.3 X10'3 (0-0.9); EOSINOPHILS % (AUTO) 4.1 % (0-6); HEMATOCRIT 28.5 % (42.0-52.0); HEMOGLOBIN 9.3 g/dl (14.0-17.9); LYMPHOCYTES % (AUTO) 25.1 % (21-51); MEAN CORPUSCULAR HEMOGLOBIN 30.7 PG (27.0-31.0); MEAN CORPUSCULAR HGB CONC 32.6 g/dL (33.0-36.5); MEAN CORPUSCULAR VOLUME 94.4 FL (78-98); MEAN PLATELET VOLUME 10.1 FL (7.4-10.4); MONOCYTES # (AUTO) 0.5 X10'3 (0-0.9); MONOCYTES % (AUTO) 6.1 % (2-12); NEUTROPHILS # (AUTO) 4.9 X10'3 (1.8-7.7); NEUTROPHILS % (AUTO) 63.5 % (42-75); PLATELET COUNT 178 X10'3 (140-440); RED BLOOD COUNT 3.02 X10'6 (4.70-6.10); WHITE BLOOD COUNT 7.8 X10'3 (4.5-11.0)
[2020-08-09] MEDS: normal saline 1000ml 1,000 ML IV SCH ×3 (06:18→21:35)
[2020-08-09 06:27] LABS: ALBUMIN 2.6 G/DL (3.4-5.0); ANION GAP 7 (8-16); BLOOD UREA NITROGEN 61 MG/DL (7-18); BUN/CREATININE RATIO 36.7 (5.4-32.0); CALCIUM 9.2 MG/DL (8.5-10.1); CHLORIDE 110 MMOL/L (99-107); CREATININE 1.66 MG/DL (0.60-1.10); GLUCOSE 86 MG/DL (70-104); POTASSIUM 5.3 MMOL/L (3.5-5.1); SODIUM 137 MMOL/L (135-145); TOTAL CARBON DIOXIDE 19.6 MMOL/L (24-32); eGFR 41 ML/MIN
[2020-08-09] MEDS ORDERED: insulin glargine (Lantus) pen - multi-dose SQ SCH (08:00)
[2020-08-09] MEDS: polyvinyl alcohol ophthalmic drops 15ml bottle EACHEYE SCH ×3 (08:17→21:23)
[2020-08-09] MEDS: ferrous sulfate 325mg tablet PO SCH (08:18)
[2020-08-09] MEDS: allopurinol 300 MG tablet PO SCH (08:18)
[2020-08-09] MEDS: OMEGA-3/DHA/EPA/FISH OIL 1 EACH CAPSULE.DR PO SCH ×2 (08:18→21:24)
[2020-08-09] MEDS: levoTHYROXINE 125mcg tablet PO SCH (08:18)
[2020-08-09] MEDS: levetiracetam 250mg tablet PO SCH ×2 (08:18→21:24)
[2020-08-09] MEDS: pregabalin 25mg capsule PO SCH ×3 (08:18→21:25)
[2020-08-09] MEDS: magnesium oxide 400mg tablet PO SCH ×2 (08:18→20:00)
[2020-08-09] MEDS: docusate sod 250mg capsule PO SCH ×2 (08:19→21:29)
[2020-08-09] MEDS: carvedilol 6.25mg tablet PO SCH ×2 (08:19→21:24)
[2020-08-09] MEDS: enoxaparin 40mg/0.4ml syringe SUBCUT SCH (08:22)
[2020-08-09] MEDS: fenofibrate 145mg tablet PO SCH (08:22)
--- NOTE | 2020-08-09 09:09 | NUR ---
Dr. Dejesus updated on pt condition. Orders to decrease lantus dose to 27 units daily.
[2020-08-09] MEDS ORDERED: insulin glargine (Lantus) pen - multi-dose SQ ONE (09:30)
--- NOTE | 2020-08-09 09:30 | NUR ---
Incontinent of stool, linens changed, pt repositioned. Wound photos placed in chart.
[2020-08-09] MEDS: cyanocobalamin 500mcg tablet PO SCH (10:03)
[2020-08-09] MEDS ORDERED: ondansetron 4mg rapidly disintigrating tab PO PRN (14:00)
[2020-08-09 14:13] LABS: HEMOGLOBIN A1C 8.2 % (4.5-6.2)
--- NOTE | 2020-08-09 19:50 | NUR ---
I have received report from NANCY Hung,RN and had the opportunity to ask questions. 2000HRS .Patient transferred into room 2011 B. Patient, settled in bed. Patient orientated to room and items. Bed in low lock position, call light in reach. Patient assessed, has sacral wounds, photos taken and in chart, wounds verified by 2 RNs.
[2020-08-09 20:00] VITALS: BP 128/62
[2020-08-09] MEDS: amiodarone 200mg tablet PO SCH (21:22)
[2020-08-09] MEDS: atorvastatin 20mg tablet PO SCH (21:24)
[2020-08-09] MEDS: apixaban 5mg tablet PO SCH (21:24)
[2020-08-09 22:00] VITALS: BP 139/66
[2020-08-10 02:00] VITALS: BP 128/64
[2020-08-10 06:00] VITALS: BP 117/60
--- NOTE | 2020-08-10 06:22 | NUR ---
Problems reprioritized. Patient report given to ELIAN Murcia,questions answered & plan of care reviewed.
[2020-08-10 06:59] LABS: BASOPHILS # (AUTO) 0.1 X10'3 (0-0.2); BASOPHILS % (AUTO) 0.6 % (0-1); EOSINOPHILS # (AUTO) 0.3 X10'3 (0-0.9); EOSINOPHILS % (AUTO) 3.4 % (0-6); HEMATOCRIT 30.4 % (42.0-52.0); LYMPHOCYTES # (AUTO) 2.1 X10'3 (1.1-4.8); LYMPHOCYTES % (AUTO) 20.8 % (21-51); MEAN CORPUSCULAR HEMOGLOBIN 31.1 PG (27.0-31.0); MEAN CORPUSCULAR VOLUME 94.1 FL (78-98); MEAN PLATELET VOLUME 9.5 FL (7.4-10.4); MONOCYTES # (AUTO) 0.7 X10'3 (0-0.9); NEUTROPHILS # (AUTO) 6.7 X10'3 (1.8-7.7); NEUTROPHILS % (AUTO) 68.2 % (42-75); PLATELET COUNT 198 X10'3 (140-440); RED BLOOD COUNT 3.23 X10'6 (4.70-6.10); RED CELL DISTRIBUTION WIDTH 15.1 % (11.5-14.5); WHITE BLOOD COUNT 9.9 X10'3 (4.5-11.0)
[2020-08-10 07:10] LABS: ALBUMIN 2.9 G/DL (3.4-5.0); ANION GAP 12 (8-16); BLOOD UREA NITROGEN 37 MG/DL (7-18); BUN/CREATININE RATIO 30.6 (5.4-32.0); CALCIUM 9.1 MG/DL (8.5-10.1); CHLORIDE 110 MMOL/L (99-107); CREATININE 1.21 MG/DL (0.60-1.10); GLUCOSE 95 MG/DL (70-104); POTASSIUM 5.1 MMOL/L (3.5-5.1); SODIUM 141 MMOL/L (135-145); TOTAL CARBON DIOXIDE 19.2 MMOL/L (24-32); eGFR 59 ML/MIN
[2020-08-10] MEDS ORDERED: BUPRENORPHINE 5 MCG/HR TOP SCH (08:00)
[2020-08-10] MEDS: polyvinyl alcohol ophthalmic drops 15ml bottle EACHEYE SCH ×3 (08:36→21:00)
[2020-08-10] MEDS: levetiracetam 250mg tablet PO SCH ×2 (08:37→20:44)
[2020-08-10] MEDS: enoxaparin 40mg/0.4ml syringe SUBCUT SCH (08:37)
[2020-08-10] MEDS: ferrous sulfate 325mg tablet PO SCH (08:38)
[2020-08-10] MEDS: docusate sod 250mg capsule PO SCH ×2 (08:38→20:43)
[2020-08-10] MEDS: pregabalin 25mg capsule PO SCH ×3 (08:38→20:45)
[2020-08-10] MEDS: OMEGA-3/DHA/EPA/FISH OIL 1 EACH CAPSULE.DR PO SCH ×2 (08:38→20:44)
[2020-08-10] MEDS: apixaban 5mg tablet PO SCH ×2 (08:38→20:44)
[2020-08-10] MEDS: allopurinol 300 MG tablet PO SCH (08:39)
[2020-08-10] MEDS: carvedilol 6.25mg tablet PO SCH ×2 (08:39→20:44)
[2020-08-10] MEDS: fenofibrate 145mg tablet PO SCH (08:39)
[2020-08-10] MEDS: levoTHYROXINE 125mcg tablet PO SCH (08:45)
[2020-08-10] MEDS: magnesium oxide 400mg tablet PO SCH ×2 (08:45→20:45)
[2020-08-10 11:00] VITALS: BP 123/65
--- NOTE | 2020-08-10 11:12 | NUR ---
DM consult: Pt with A1c 8.2%, currently documented as A/O x 1 and confused. DM education deferred at this time until mentation improves. Pt presented with hypotension and AMS and admit with GEOVANNY and hyperkalemia (now WNL). Pt with a low Srinath of 11, with a sacrum PU per physical assessment. Per [facility]OC notes at last admit (04/07/19) patient's sacrum PU was stage IV. No wound care consult placed this admit. Pt on a heart healthy diet documented with 50% PO intake first meal while receiving minimum assistance, pending documentation of PO intake for today. Noted that pt documented with retching emesis this morning per care trends. Patient's documented wt is 224 kg however likely inaccurate as it isn't scaled. Pt with hx bilat BKA and most recent scaled wt in EMR is 115.2 kg taken in March 2019. Per RD note 11/14/14 patient's height prior to bilat BKA was 74", IBW +10% is 83.6 kg, adjusted for bilat BKA. LBM 08/09 documented as a smear, receiving routine bowel care with PRN bowel care available. D/w with RN recommendations for a scaled weight and wound care consult this admit. Will continue to follow closely and monitor need for nutrition intervention pending further trends in PO intake and further assessment of wound. Recommendations: 1) Continue heart healthy diet; CHO controlled diet not indicated at this time despite A1c 8.2% as BG range 86-111 mg/dL since admit; monitor need for meal assistance 2) Monitor need for ONS/additional protein; would benefit from Octavio ONS for wound healing if sacrum PU is a stage II or greater 3) Routine bowel care 4) Scaled weights per rx 5) DM education once stable, A1c 8.2% Addendum: 08/10/20 at [address] Amended: Links added.
--- NOTE | 2020-08-10 12:03 | NUR ---
PATIENT HAS DC ORDER, PATIENT APPARENTLY COMES FROM [facility], UIPDATED CASE MANAGEMENT AND CHARGE THEY WILL FOLLOW UP HAS PATIENT WILL PROBABLY WILL NOT BE ACCEPTED BACK TODAY, WILL CONTINUE TO FOLLOW UP.
[2020-08-10] MEDS: normal saline 1000ml 1,000 ML IV SCH ×2 (12:43→22:28)
[2020-08-10 16:41] VITALS: BP 129/69
[2020-08-10 18:00] VITALS: BP_SYST 116; BP_SYST 141; BP_DIAS 59; BP_DIAS 80
--- NOTE | 2020-08-10 18:00 | NUR ---
Patient in room PCU 3016. I have received report from Divina PLUMMER. and had the opportunity to ask questions and assume patient care. NAD noted, RR even and unlabored. Pt resting in bed. Safety precautions in place. will continue to monitor.
[2020-08-10] MEDS: amiodarone 200mg tablet PO SCH (20:45)
[2020-08-10] MEDS: atorvastatin 20mg tablet PO SCH (20:45)
[2020-08-10 22:29] VITALS: BP 131/69
[2020-08-11] VITALS (8 sets, daily range): BP systolic 116–144; BP diastolic 54–72
--- NOTE | 2020-08-11 | NUR ---
Pt continues to rest in bed. Accessed a new IV in R forearm. Will continue to monitor.
[2020-08-11] MEDS: acetaminophen 325mg tablet PO PRN ×2 (02:45→16:02)
--- NOTE | 2020-08-11 06:26 | NUR ---
Problems reprioritized. Patient report given, questions answered & plan of care reviewed with Divina aCbrera.
[2020-08-11 06:38] LABS: BASOPHILS # (AUTO) 0.1 X10'3 (0-0.2); BASOPHILS % (AUTO) 0.9 % (0-1); EOSINOPHILS # (AUTO) 0.3 X10'3 (0-0.9); EOSINOPHILS % (AUTO) 3.2 % (0-6); HEMATOCRIT 30.1 % (42.0-52.0); LYMPHOCYTES % (AUTO) 19.6 % (21-51); MEAN CORPUSCULAR HGB CONC 33.1 g/dL (33.0-36.5); MEAN CORPUSCULAR VOLUME 93.6 FL (78-98); MEAN PLATELET VOLUME 9.8 FL (7.4-10.4); MONOCYTES # (AUTO) 0.7 X10'3 (0-0.9); MONOCYTES % (AUTO) 7.2 % (2-12); NEUTROPHILS # (AUTO) 7.2 X10'3 (1.8-7.7); NEUTROPHILS % (AUTO) 69.1 % (42-75); PLATELET COUNT 203 X10'3 (140-440); RED BLOOD COUNT 3.22 X10'6 (4.70-6.10); RED CELL DISTRIBUTION WIDTH 15.1 % (11.5-14.5); WHITE BLOOD COUNT 10.4 X10'3 (4.5-11.0)
[2020-08-11 06:43] LABS: ALBUMIN 2.7 G/DL (3.4-5.0); ANION GAP 12 (8-16); BLOOD UREA NITROGEN 27 MG/DL (7-18); BUN/CREATININE RATIO 24.5 (5.4-32.0); CHLORIDE 112 MMOL/L (99-107); GLUCOSE 112 MG/DL (70-104); POTASSIUM 4.6 MMOL/L (3.5-5.1); SODIUM 144 MMOL/L (135-145); TOTAL CARBON DIOXIDE 19.7 MMOL/L (24-32); eGFR 66 ML/MIN
[2020-08-11] MEDS: normal saline 1000ml 1,000 ML IV SCH ×2 (08:47→11:46)
[2020-08-11] MEDS: levoTHYROXINE 125mcg tablet PO SCH (08:48)
[2020-08-11] MEDS: fenofibrate 145mg tablet PO SCH (08:48)
[2020-08-11] MEDS: magnesium oxide 400mg tablet PO SCH ×2 (08:48→19:34)
[2020-08-11] MEDS: ferrous sulfate 325mg tablet PO SCH (08:48)
[2020-08-11] MEDS: pregabalin 25mg capsule PO SCH ×3 (08:48→20:02)
[2020-08-11] MEDS: enoxaparin 40mg/0.4ml syringe SUBCUT SCH (08:48)
[2020-08-11] MEDS: cyanocobalamin 500mcg tablet PO SCH (08:48)
[2020-08-11] MEDS: levetiracetam 250mg tablet PO SCH ×2 (08:48→19:34)
[2020-08-11] MEDS: polyvinyl alcohol ophthalmic drops 15ml bottle EACHEYE SCH ×3 (08:49→20:00)
[2020-08-11] MEDS: carvedilol 6.25mg tablet PO SCH ×2 (08:49→20:01)
[2020-08-11] MEDS: docusate sod 250mg capsule PO SCH ×2 (08:49→19:34)
[2020-08-11] MEDS: OMEGA-3/DHA/EPA/FISH OIL 1 EACH CAPSULE.DR PO SCH ×2 (08:49→19:36)
[2020-08-11] MEDS: apixaban 5mg tablet PO SCH ×2 (08:49→19:34)
[2020-08-11] MEDS: allopurinol 300 MG tablet PO SCH (08:49)
--- NOTE | 2020-08-11 11:04 | NUR ---
MADE CALL OUT TO PATIENTS CHATA SWAIN. UPDATED ABOUT PLAN OF CARE, ORIENTED ABOUT VISITS TO PATIENT INDICATES SHE WILL BE PASSING BY TO SEE HIM TODAY, NO OTHER QUESTIONS OR CONCERNS.
--- NOTE | 2020-08-11 14:09 | NUR ---
MESSAGE: PATIENT IN 316-A, BIBI BANKS IS REQUESTING BENGAY OR DICLOFENAC FOR PATIENTS STUMP, PLUS SHE INDICATES PATIENT MORE CONFUSED THAN NORMAL.
[2020-08-11] MEDS ORDERED: CefTRIAXone/D5W-Rocephin 1gm 50 ML IV ONE (14:35)
[2020-08-11] MEDS ORDERED: fluconazole 100mg tablet PO ONE (14:35)
[2020-08-11] MEDS: atorvastatin 20mg tablet PO SCH (20:01)
[2020-08-11] MEDS: amiodarone 200mg tablet PO SCH (20:02)
[2020-08-11] MEDS: methyl salicylate/menthol cream 57gm TP SCH (20:03)
[2020-08-12 02:00] VITALS: BP 134/62
[2020-08-12] MEDS: normal saline 1000ml 1,000 ML IV SCH (04:00)
[2020-08-12 06:00] VITALS: BP 130/59
--- NOTE | 2020-08-12 06:29 | NUR ---
Patient in room PCU 3016. I have received report from Quinn PLUMMER and had the opportunity to ask questions and assume patient care. Patient resting in bed in no acute distress.
[2020-08-12 07:02] LABS: BASOPHILS # (AUTO) 0.1 X10'3 (0-0.2); BASOPHILS % (AUTO) 1.2 % (0-1); EOSINOPHILS # (AUTO) 0.4 X10'3 (0-0.9); EOSINOPHILS % (AUTO) 3.8 % (0-6); HEMATOCRIT 28.2 % (42.0-52.0); HEMOGLOBIN 9.4 g/dl (14.0-17.9); LYMPHOCYTES # (AUTO) 2.1 X10'3 (1.1-4.8); LYMPHOCYTES % (AUTO) 21.2 % (21-51); MEAN CORPUSCULAR HGB CONC 33.5 g/dL (33.0-36.5); MEAN CORPUSCULAR VOLUME 92.5 FL (78-98); MEAN PLATELET VOLUME 10.2 FL (7.4-10.4); MONOCYTES # (AUTO) 0.6 X10'3 (0-0.9); MONOCYTES % (AUTO) 5.9 % (2-12); NEUTROPHILS # (AUTO) 6.8 X10'3 (1.8-7.7); NEUTROPHILS % (AUTO) 67.9 % (42-75); PLATELET COUNT 190 X10'3 (140-440); RED BLOOD COUNT 3.05 X10'6 (4.70-6.10); WHITE BLOOD COUNT 10.1 X10'3 (4.5-11.0)
[2020-08-12 07:33] LABS: ALBUMIN 2.7 G/DL (3.4-5.0); ANION GAP 12 (8-16); BLOOD UREA NITROGEN 19 MG/DL (7-18); BUN/CREATININE RATIO 19.6 (5.4-32.0); CALCIUM 8.8 MG/DL (8.5-10.1); CHLORIDE 109 MMOL/L (99-107); CREATININE 0.97 MG/DL (0.60-1.10); GLUCOSE 128 MG/DL (70-104); POTASSIUM 4.2 MMOL/L (3.5-5.1); SODIUM 140 MMOL/L (135-145); TOTAL CARBON DIOXIDE 18.7 MMOL/L (24-32); eGFR 76 ML/MIN
[2020-08-12] MEDS ORDERED: CefTRIAXone/D5W-Rocephin 1gm 50 ML IV SCH (08:00)
[2020-08-12] MEDS ORDERED: fluconazole 100mg tablet PO SCH (08:00)
[2020-08-12] MEDS: methyl salicylate/menthol cream 57gm TP SCH (08:50)
[2020-08-12] MEDS: polyvinyl alcohol ophthalmic drops 15ml bottle EACHEYE SCH (08:50)
[2020-08-12] MEDS: OMEGA-3/DHA/EPA/FISH OIL 1 EACH CAPSULE.DR PO SCH (08:51)
[2020-08-12] MEDS: pregabalin 25mg capsule PO SCH (08:51)
[2020-08-12] MEDS: docusate sod 250mg capsule PO SCH (08:51)
[2020-08-12] MEDS: magnesium oxide 400mg tablet PO SCH (08:52)
[2020-08-12] MEDS: ferrous sulfate 325mg tablet PO SCH (08:52)
[2020-08-12] MEDS: allopurinol 300 MG tablet PO SCH (08:52)
[2020-08-12] MEDS: cyanocobalamin 500mcg tablet PO SCH (08:52)
[2020-08-12] MEDS: apixaban 5mg tablet PO SCH (08:52)
[2020-08-12] MEDS: fenofibrate 145mg tablet PO SCH (08:52)
[2020-08-12] MEDS: carvedilol 6.25mg tablet PO SCH (08:52)
[2020-08-12] MEDS: levetiracetam 250mg tablet PO SCH (08:52)
[2020-08-12] MEDS: levoTHYROXINE 125mcg tablet PO SCH (08:52)
--- NOTE | 2020-08-12 09:26 | NUR ---
Report was called to Jaylin at [place]
[2020-08-12] MEDS ORDERED: FLUC200T PO (09:36)
[2020-08-12] MEDS ORDERED: LEVO750T46 PO (09:36)
[2020-08-12 11:00] VITALS: BP 118/52
--- NOTE | 2020-08-12 12:06 | NUR ---
Pt was picked up by [facility] at 1136. PIv was removed with Cannula intact. Transfer packet was sent with the patient.
== END 2020-08-12 11:36 | disposition home or self-care (01) | DRG 640 ==
LOC: ER 15:57 → ED HOLD 19:56 → PCU 3S 08-09 19:20
PROVIDERS: ADMIT Family Medicine; ATTEND Internal Medicine
DX: E86.0 Dehydration (principal); N17.0 Acute kidney failure with tubular necrosis; N39.0 Urinary tract infection, site not specified; D63.8 Anemia in other chronic diseases classified elsewhere; E03.9 Hypothyroidism, unspecified; E11.22 Type 2 diabetes mellitus with diabetic chronic kidney disease; E87.5 Hyperkalemia; F32.9 Major depressive disorder, single episode, unspecified; E11.42 Type 2 diabetes mellitus with diabetic polyneuropathy; I12.9 Hypertensive chronic kidney disease with stage 1 through stage 4 chronic kidney disease, or unspecified chronic kidney disease; K21.9 Gastro-esophageal reflux disease without esophagitis; M10.9 Gout, unspecified; I95.9 Hypotension, unspecified; I48.91 Unspecified atrial fibrillation; N18.9 Chronic kidney disease, unspecified; Z79.01 Long term (current) use of anticoagulants; Z79.4 Long term (current) use of insulin; Z79.899 Other long term (current) drug therapy; Z87.442 Personal history of urinary calculi; Z89.511 Acquired absence of right leg below knee; Z89.512 Acquired absence of left leg below knee; Z89.612 Acquired absence of left leg above knee; Z91.013 Allergy to seafood
CPT/HCPCS: 36415; 70450; 71045; 80048; 80053; 81001; 82948; 83036; 83605; 83735; 83880; 84145; 84484; 85025; 87040; 87077; 87081; 87088; 87186; 93005; 94640; 94760; 97161; 97530; 99285; G0378; J0696; J1650; J1815; J3370; J7030

== ENCOUNTER 2020-11-02 03:28 | Emergency (ER) | payer OTHER, MEDICARE ==
[~2020-11-02] VITALS: Ht 121.9 cm; Wt 90.5 kg
[~2020-11-02 03:28] MED LIST changes: -ACET-2119 PO; +AMIO200T61 PO; +APIX5TAB3 PO; -ASPI-920 PO; -BACL10TA PO; +BUPR1PAT TOP; -DIPH25CA46 PO; +FLUC200T PO; -FLUTICASONE SPRAY NAS; +LEVE500T99 PO; +LEVO125T PO; +LEVO750T46 PO; -LISI-790 PO; -MAGN400C PO; -SENN-263 PO; -SYN0.088T PO; -TAPE100T2 PO
[2020-11-02] MEDS ORDERED: normal saline 1000ML IV soln IVB ONE ×2 (04:05→05:50)
[2020-11-02 05:34] LABS: ALANINE AMINOTRANSFERASE 30 U/L (12-78); ALBUMIN 3.6 G/DL (3.4-5.0); ALBUMIN/GLOBULIN RATIO 0.9 (1.1-1.5); ALKALINE PHOSPHATASE 39 IU/L (46-116); ANION GAP 10 (8-16); ASPARTATE AMINO TRANSFERASE 22 U/L (10-37); BILIRUBIN,TOTAL 0.2 MG/DL (0.1-1.0); BLOOD UREA NITROGEN 51 MG/DL (7-18); BUN/CREATININE RATIO 43.6 (5.4-32.0); CALCIUM 9.2 MG/DL (8.5-10.1); CHLORIDE 103 MMOL/L (99-107); CREATININE 1.17 MG/DL (0.60-1.10); GLUCOSE 171 MG/DL (70-104); POTASSIUM 4.6 MMOL/L (3.5-5.1); SODIUM 137 MMOL/L (135-145); TOTAL CARBON DIOXIDE 24.5 MMOL/L (24-32); TOTAL PROTEIN 7.7 G/DL (6.4-8.2); eGFR 61 ML/MIN
--- NOTE | 2020-11-02 06:37 | NUR ---
[facility] ETA AT 0900
[2020-11-02] MEDS ORDERED: HYDROcodone/acetaminophen 5mg/325mg tablet PO ONE (06:50)
--- NOTE | 2020-11-02 06:50 | NUR ---
pt c/o lower ext pain. informed child. please see new orders.
[2020-11-02 09:35] VITALS: BP 150/70
== END 2020-11-02 09:37 | disposition home or self-care (01) ==
LOC: ER 03:29
DX: T83.011A Breakdown (mechanical) of indwelling urethral catheter, initial encounter (principal); E86.0 Dehydration; I48.91 Unspecified atrial fibrillation; I10 Essential (primary) hypertension; E11.9 Type 2 diabetes mellitus without complications; K21.9 Gastro-esophageal reflux disease without esophagitis; Z91.013 Allergy to seafood; Z79.4 Long term (current) use of insulin; Z98.890 Other specified postprocedural states; Z79.2 Long term (current) use of antibiotics; Z79.899 Other long term (current) drug therapy; Z87.442 Personal history of urinary calculi; Z87.440 Personal history of urinary (tract) infections
CPT/HCPCS: 36415; 80053; 96360; 99283; J7030

== ENCOUNTER 2020-12-07 19:59 | Emergency (ER) | payer OTHER, MEDICARE ==
[~2020-12-07] VITALS: Ht 188 cm; Wt 101.4 kg
[2020-12-07] MEDS ORDERED: oxyCODONE/APAP 5-325mg tablet PO ONE (21:25)
[2020-12-07 21:29] LABS: BASOPHILS # (AUTO) 0.1 X10'3 (0-0.2); BASOPHILS % (AUTO) 1.1 % (0-1); EOSINOPHILS # (AUTO) 0.6 X10'3 (0-0.9); EOSINOPHILS % (AUTO) 4.3 % (0-6); HEMATOCRIT 34.7 % (42.0-52.0); HEMOGLOBIN 11.8 g/dl (14.0-17.9); LYMPHOCYTES # (AUTO) 2.3 X10'3 (1.1-4.8); LYMPHOCYTES % (AUTO) 18.1 % (21-51); MEAN CORPUSCULAR HEMOGLOBIN 30.4 PG (27.0-31.0); MEAN CORPUSCULAR HGB CONC 33.9 g/dL (33.0-36.5); MEAN CORPUSCULAR VOLUME 89.7 FL (78-98); MONOCYTES # (AUTO) 0.8 X10'3 (0-0.9); NEUTROPHILS % (AUTO) 70.5 % (42-75); PLATELET COUNT 199 X10'3 (140-440); RED BLOOD COUNT 3.87 X10'6 (4.70-6.10); RED CELL DISTRIBUTION WIDTH 16.2 % (11.5-14.5); WHITE BLOOD COUNT 12.8 X10'3 (4.5-11.0)
--- NOTE | 2020-12-07 21:41 | NUR ---
Percoset given for bilateral leg pain. Primary RN is scanning patints bladder.
[2020-12-07 21:46] LABS: ALANINE AMINOTRANSFERASE 25 U/L (12-78); ALBUMIN 3.5 G/DL (3.4-5.0); ALBUMIN/GLOBULIN RATIO 0.8 (1.1-1.5); ALKALINE PHOSPHATASE 42 IU/L (46-116); ANION GAP 10 (8-16); ASPARTATE AMINO TRANSFERASE 19 U/L (10-37); BILIRUBIN,TOTAL 0.3 MG/DL (0.1-1.0); BLOOD UREA NITROGEN 62 MG/DL (7-18); BUN/CREATININE RATIO 41.1 (5.4-32.0); CALCIUM 9.7 MG/DL (8.5-10.1); CHLORIDE 102 MMOL/L (99-107); CREATININE 1.51 MG/DL (0.60-1.10); GLUCOSE 257 MG/DL (70-104); POTASSIUM 4.6 MMOL/L (3.5-5.1); SODIUM 136 MMOL/L (135-145); TOTAL CARBON DIOXIDE 24.2 MMOL/L (24-32); TOTAL PROTEIN 7.7 G/DL (6.4-8.2); eGFR 46 ML/MIN
--- NOTE | 2020-12-07 22:58 | NUR ---
Pt is dc ready. Pt with minimal pain and urine continues to flow into the catheter bag. Reports he takes [facility] for transport. [facility] working on transport now.
[2020-12-07 23:02] VITALS: BP 120/63
--- NOTE | 2020-12-07 23:14 | NUR ---
[facility] to pear picker Pt shortly and transport back to .
--- NOTE | 2020-12-07 23:40 | NUR ---
Patient is in no distress. Awaiting transport.
== END 2020-12-08 00:20 ==
LOC: ER 20:00
DX: T83.010A Breakdown (mechanical) of cystostomy catheter, initial encounter (principal); E86.0 Dehydration; I48.91 Unspecified atrial fibrillation; I10 Essential (primary) hypertension; K21.9 Gastro-esophageal reflux disease without esophagitis; M10.9 Gout, unspecified; Z87.440 Personal history of urinary (tract) infections; Z87.442 Personal history of urinary calculi; Z89.611 Acquired absence of right leg above knee; Z91.013 Allergy to seafood; Z79.4 Long term (current) use of insulin; Z79.899 Other long term (current) drug therapy; Z79.2 Long term (current) use of antibiotics; Y84.6 Urinary catheterization as the cause of abnormal reaction of the patient, or of later complication, without mention of misadventure at the time of the procedure; Y92.89 Other specified places as the place of occurrence of the external cause
CPT/HCPCS: 36415; 80053; 85025; 99284; 99285

== ENCOUNTER 2020-12-26 17:22 | Emergency (ER) | payer OTHER, MEDICARE ==
[~2020-12-26] VITALS: Ht 188 cm; Wt 86.8 kg
[2020-12-26 17:29] VITALS: BP 135/71
--- NOTE | 2020-12-26 18:35 | NUR ---
[facility] CALLED TO TRANSFER PT BACK TO [facility]
[2020-12-26 18:39] LABS: CLARITY,URINE TURBID (Clear); COLOR,URINE YELLOW (Yellow); GLUCOSE, URINE NEGATIVE (Neg); KETONES,URINE TRACE mg/dl (Neg); LEUKOCYTE ESTERASE ,URINE MODERATE (Neg); NITRITES, URINE POSITIVE (Neg); OCCULT BLOOD,URINE MODERATE (Neg); PH,URINE 8.5 (4.8-8.0); PROTEIN,URINE 100 mg/dl (Neg); UROBILINOGEN,URINE 0.2 E.U/dL (0.2-1.0)
[2020-12-26 18:46] LABS: BACTERIA,URINE 4+ /HPF (Neg); RBC,URINE 50-100 /HPF (0-2); UA COLLECTION TYPE FOLEY CATH; WBC,URINE TNTC /HPF (0-4)
[2020-12-26 18:47] LABS: SQUAMOUS EPITHELIAL CELL,UR FEW /LPF (FEW); TRIPLE PHOSPHATE CRYST 4+ /HPF (NEGATIVE)
[2020-12-26] MEDS ORDERED: acetaminophen 325mg tablet PO ONE (19:00)
--- NOTE | 2020-12-26 19:04 | NUR ---
[facility] ETA [phone] for transport back to [facility]
[2020-12-26] MEDS ORDERED: SULF1TAB49 PO (19:55)
== END 2020-12-26 20:38 | disposition home or self-care (01) ==
LOC: ER 17:23
DX: T83.010A Breakdown (mechanical) of cystostomy catheter, initial encounter (principal); N39.0 Urinary tract infection, site not specified; I48.91 Unspecified atrial fibrillation; I10 Essential (primary) hypertension; K21.9 Gastro-esophageal reflux disease without esophagitis; M10.9 Gout, unspecified; F32.9 Major depressive disorder, single episode, unspecified; Z87.442 Personal history of urinary calculi; Z87.440 Personal history of urinary (tract) infections; Z98.890 Other specified postprocedural states; Z91.013 Allergy to seafood; Z79.4 Long term (current) use of insulin; Z79.2 Long term (current) use of antibiotics; Z79.899 Other long term (current) drug therapy; Y84.6 Urinary catheterization as the cause of abnormal reaction of the patient, or of later complication, without mention of misadventure at the time of the procedure
CPT/HCPCS: 81001; 87077; 87088; 87186; 99283

== ENCOUNTER 2021-08-27 22:02 | Inpatient (IN) | payer OTHER, MEDICARE ==
[~2021-08-27] VITALS: Ht 152.4 cm; Wt 90.0 kg
[~2021-08-27 22:02] MED LIST changes: +BISA-111 PO; -BISA5TAB56 PO
--- NOTE | 2021-08-27 23:00 | NUR ---
PATIENT ARRIVED WITH COLOSTOMY BACK, CHANGED WITH SOFT YELLOW STOOL, STOMA INTACT.
[2021-08-27 23:47] LABS: BASOPHILS # (AUTO) 0.2 X10'3 (0-0.2); BASOPHILS % (AUTO) 1.2 % (0-1); EOSINOPHILS # (AUTO) 0.6 X10'3 (0-0.9); EOSINOPHILS % (AUTO) 3.4 % (0-6); HEMATOCRIT 42.3 % (42.0-52.0); LYMPHOCYTES # (AUTO) 3.7 X10'3 (1.1-4.8); LYMPHOCYTES % (AUTO) 21.8 % (21-51); MEAN CORPUSCULAR HGB CONC 33.1 g/dL (33.0-36.5); MEAN CORPUSCULAR VOLUME 87.7 FL (78-98); MEAN PLATELET VOLUME 9.8 FL (7.4-10.4); MONOCYTES # (AUTO) 1.3 X10'3 (0-0.9); MONOCYTES % (AUTO) 7.4 % (2-12); NEUTROPHILS # (AUTO) 11.2 X10'3 (1.8-7.7); NEUTROPHILS % (AUTO) 66.2 % (42-75); PLATELET COUNT 283 X10'3 (140-440); RED BLOOD COUNT 4.83 X10'6 (4.70-6.10); RED CELL DISTRIBUTION WIDTH 16.9 % (11.5-14.5)
[2021-08-27 23:48] LABS: CLARITY,URINE CLOUDY (Clear); COLOR,URINE YELLOW (Yellow); GLUCOSE, URINE NEGATIVE (Neg); KETONES,URINE NEGATIVE (Neg); LEUKOCYTE ESTERASE ,URINE SMALL (Neg); NITRITES, URINE NEGATIVE (Neg); OCCULT BLOOD,URINE NEGATIVE (Neg); PH,URINE >=9.0 (4.8-8.0); PROTEIN,URINE 100 mg/dl (Neg); UROBILINOGEN,URINE 0.2 E.U/dL (0.2-1.0)
[2021-08-28 00:02] LABS: ALANINE AMINOTRANSFERASE 37 U/L (12-78); ALBUMIN 3.8 G/DL (3.4-5.0); ALBUMIN/GLOBULIN RATIO 0.8 (1.1-1.5); ALKALINE PHOSPHATASE 49 IU/L (46-116); ANION GAP 15 (8-16); ASPARTATE AMINO TRANSFERASE 32 U/L (10-37); BILIRUBIN,TOTAL 0.3 MG/DL (0.1-1.0); BLOOD UREA NITROGEN 34 MG/DL (7-18); BUN/CREATININE RATIO 28.8 (5.4-32.0); CALCIUM 10.1 MG/DL (8.5-10.1); CHLORIDE 99 MMOL/L (99-107); CREATININE 1.18 MG/DL (0.60-1.10); GLUCOSE 247 MG/DL (70-104); POTASSIUM 4.9 MMOL/L (3.5-5.1); SODIUM 138 MMOL/L (135-145); TOTAL CARBON DIOXIDE 24.2 MMOL/L (24-32); TOTAL PROTEIN 8.3 G/DL (6.4-8.2); eGFR 61 ML/MIN
[2021-08-28] MEDS ORDERED: cefepime 1GM/NS ADD-VANTAGE 100 ML IV ONE (00:30)
[2021-08-28] MEDS ORDERED: normal saline 1000ml 1,000 ML IV ONE ×2 (00:30→01:40)
[2021-08-28] MEDS ORDERED: ondansetron/PF 4mg/2ml inj IV ONE (00:35)
[2021-08-28] MEDS ORDERED: vancomycin/NS 1 GM ADD-VANTAGE 250 ML IV ONE ×2 (00:35→01:25)
[2021-08-28] MEDS ORDERED: morphine 4 MG/ML inj SYRINge IV ONE (00:35)
[2021-08-28] MEDS ORDERED: cefepime 1GM in D5W 50mL 50 ML IV ONE (00:35)
[2021-08-28 00:36] LABS: UA COLLECTION TYPE FOLEY CATH
[2021-08-28 00:38] LABS: AMORPHOUS PHOSPHATES 2+; MUCUS STRANDS FEW /LPF (Neg); SQUAMOUS EPITHELIAL CELL,UR FEW /LPF (FEW); TRIPLE PHOSPHATE CRYST 3+ /HPF (NEGATIVE)
[2021-08-28 00:39] LABS: BACTERIA,URINE 3+ /HPF (Neg)
[2021-08-28] MEDS ORDERED: ondansetron 4mg rapidly disintigrating tab PO PRN (03:55)
[2021-08-28] MEDS ORDERED: acetaminophen 325mg tablet PO PRN ×2 (03:55)
[2021-08-28] MEDS ORDERED: mag hydrox/Alum hydrox/simeth 30ml oral suspension PO PRN (03:55)
[2021-08-28] MEDS ORDERED: magnesium hydroxide 30ml (MOM) UD suspension PO PRN (03:55)
[2021-08-28] MEDS ORDERED: diphenhydrAMINE 50 mg/ml inj IV PRN (03:55)
[2021-08-28] MEDS ORDERED: ondansetron/PF 4mg/2ml inj IV PRN (03:55)
[2021-08-28] MEDS: sodium chloride 0.45% 1,000 ML IV SCH ×3 (03:55→23:55)
[2021-08-28] MEDS ORDERED: diphenhydrAMINE 25mg capsule PO PRN (03:55)
[2021-08-28] MEDS ORDERED: bisacodyl 10mg suppository rectal RC PRN (03:55)
[2021-08-28] MEDS ORDERED: morphine 2 MG/ML inj. syringe IV PRN (03:55)
[2021-08-28] MEDS ORDERED: glucagon, human recombinant 1mg kit SUBCUT PRN (04:05)
[2021-08-28] MEDS ORDERED: dextrose 50%-water 50ml dispensing syringe IV PRN ×2 (04:05)
[2021-08-28] MEDS ORDERED: MESSAGE TO PHARMACY PO ONE (04:05)
[2021-08-28] MEDS ORDERED: DEXTROSE 15 GM of carb/4 tabs (each vial/BOTTLE has 4 tablets) PO PRN ×2 (04:05)
[2021-08-28 04:22] LABS: HEMOGLOBIN A1C 8.6 % (4.5-6.2)
[2021-08-28 04:30] LABS: URINE AMPHETAMINE SCREEN NEGATIVE (Neg); URINE BARBITUATE SCREEN NEGATIVE (Neg); URINE BENZODIAZEPINES SCREEN NEGATIVE (Neg); URINE CANNABINOID SCREEN NEGATIVE (Neg); URINE COCAINE SCREEN NEGATIVE (Neg); URINE METHADONE SCREEN NEGATIVE (Neg); URINE OPIATE SCREEN POSITIVE (Neg); URINE PHENCYCLIDINE SCREEN NEGATIVE (Neg)
[2021-08-28 04:31] LABS: LIPASE 160 U/L (73-393); PHOSPHORUS 3.9 MG/DL (2.3-4.5)
--- NOTE | 2021-08-28 04:36 | NUR ---
pressure dressing applied to the sacrum
[2021-08-28 04:37] LABS: APTT 36 SECONDS (22-32)
--- NOTE | 2021-08-28 04:37 | NUR ---
Dr. Jamison changed the supapubic catheter 16 f 110 cc return
--- NOTE | 2021-08-28 04:37 | NUR ---
colostomy bag changed, site clean and dry
--- NOTE | 2021-08-28 04:38 | NUR ---
patient placed on athletic monitor, bed in lowest position, call light withi reach
--- NOTE | 2021-08-28 04:50 | NUR ---
PATIENT MORE COMFORTABLE, CLEANED AND LINEN CHANGED. COLOSTOMY CHANGED. REPOSITIONED IN BED. DRESSING CHANGE. GIVEN PO FLUIDS. AWARE OF ADMISSION. DAUGHTER AND PATIENT UPDATED
[2021-08-28] MEDS: HYDROcodone/acetaminophen 10/325mg tab PO PRN ×2 (05:50→15:57)
--- NOTE | 2021-08-28 05:52 | NUR ---
patient woke up c/o phantom leg pain. 12/21. given Narco
[2021-08-28] MEDS: morphine 2 MG/ML inj. syringe IV PRN ×2 (07:25→19:58)
[2021-08-28] MEDS: docusate sod 100mg capsule PO SCH ×2 (07:26→19:56)
[2021-08-28] MEDS: pantoprazole 40mg Tablet.DR PO SCH (07:26)
[2021-08-28] MEDS: cefTRIAXone 1g/NS 100ml IVPB 100 ML IV SCH (07:26)
--- NOTE | 2021-08-28 08:14 | NUR ---
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
[2021-08-28] MEDS ORDERED: magnesium citrate 296ml oral solution PO PRN (09:40)
[2021-08-28] MEDS ORDERED: non-formulary drug (Na Phos,M-B/Na Phos,Di-Ba* (Fleet's Enema*) 1 BOTTLE) RC PRN (09:40)
[2021-08-28] MEDS ORDERED: bisacodyl 5mg tablet.DR PO PRN (09:40)
[2021-08-28] MEDS ORDERED: non-formulary drug (Buprenorphine (Butrans) 1 PATCH) TOP SCH (09:40)
[2021-08-28] MEDS ORDERED: magnesium Cl slow-release 64mg tablet PO PRN (09:45)
[2021-08-28] MEDS ORDERED: potassium Cl 20 mEq SR tablet PO PRN ×2 (09:45)
[2021-08-28] MEDS ORDERED: potassium CL 10mEq/100ml bag 100 ML IV PRN (09:45)
[2021-08-28] MEDS ORDERED: magnesium 4gm in 100ml NS 100 ML IV PRN (09:45)
[2021-08-28] MEDS ORDERED: HYPROMELLOSE EACHEYE SCH (13:00)
[2021-08-28] MEDS ORDERED: DEXTRAN EACHEYE SCH (13:00)
--- NOTE | 2021-08-28 13:09 | NUR ---
Patient admitted to room 353. Alert to self, c/o pain morphine administered as prescribed. colostomy bag and suprapubic cath in place.
[2021-08-28 13:13] VITALS: BP 130/70
--- NOTE | 2021-08-28 13:54 | NUR ---
Message: KAROLINA RE:KemA/JOCELYN PATIENT'S SISTER SAID THE ONLY THING THAT HELP PATIENT WITH PAIN ON HIS STUMPS IS VOLTAREN CREAM. SO SHE REQUESTED SOME PLEASE ELIAN KRAMER
[2021-08-28] MEDS: insulin Lispro (HumaLOG) vial - multi-dose SQ SCH ×2 (15:04→22:14)
[2021-08-28] MEDS ORDERED: CLOP75TA33 PO (17:35)
[2021-08-28] MEDS ORDERED: VENL75TA4 PO (17:35)
[2021-08-28] MEDS ORDERED: IRON150C5 PO (17:35)
[2021-08-28] MEDS ORDERED: ZINC220C7 PO (17:35)
[2021-08-28] MEDS ORDERED: LANTUS SQ (17:35)
[2021-08-28] MEDS ORDERED: DOCU100C40 PO (17:35)
[2021-08-28 18:00] VITALS: BP 129/73
--- NOTE | 2021-08-28 18:31 | NUR ---
Problems reprioritized. Patient report given, questions answered & plan of care reviewed with ELIAN MCBRIDE.
--- NOTE | 2021-08-28 18:50 | NUR ---
Patient in room COSME 353. I have received report from Bill PLUMMER and had the opportunity to ask questions and assume patient care.
[2021-08-28] MEDS: levetiracetam 250mg tablet PO SCH (19:56)
[2021-08-28] MEDS: apixaban 5mg tablet PO SCH (19:56)
[2021-08-28] MEDS: carVEDilol 3.125mg tablet PO SCH (19:57)
[2021-08-28] MEDS: K and/or MAG REPLACEMENT MC SCH (20:00)
[2021-08-28] MEDS ORDERED: ICOSAPENT ETHYL PO SCH (20:00)
[2021-08-28] MEDS ORDERED: docusate sod 250mg capsule PO SCH (20:00)
[2021-08-28] MEDS: atorvastatin 20mg tablet PO SCH (21:22)
[2021-08-28] MEDS: amiodarone 200mg tablet PO SCH (21:22)
[2021-08-28] MEDS: pregabalin 75mg capsule PO SCH (21:22)
[2021-08-28] MEDS: temazepam 15mg capsule PO PRN (21:23)
[2021-08-28] MEDS: insulin glargine (Lantus) pen - multi-dose SQ SCH (22:12)
[2021-08-29] VITALS: BP 141/86
[2021-08-29 06:44] LABS: BASOPHILS # (AUTO) 0.1 X10'3 (0-0.2); BASOPHILS % (AUTO) 0.8 % (0-1); EOSINOPHILS # (AUTO) 0.4 X10'3 (0-0.9); EOSINOPHILS % (AUTO) 3.9 % (0-6); HEMATOCRIT 32.1 % (42.0-52.0); HEMOGLOBIN 10.8 g/dl (14.0-17.9); LYMPHOCYTES # (AUTO) 2.6 X10'3 (1.1-4.8); LYMPHOCYTES % (AUTO) 23.9 % (21-51); MEAN CORPUSCULAR HEMOGLOBIN 30.4 PG (27.0-31.0); MEAN CORPUSCULAR HGB CONC 33.6 g/dL (33.0-36.5); MEAN CORPUSCULAR VOLUME 90.4 FL (78-98); MEAN PLATELET VOLUME 9.6 FL (7.4-10.4); MONOCYTES # (AUTO) 0.7 X10'3 (0-0.9); MONOCYTES % (AUTO) 6.4 % (2-12); NEUTROPHILS # (AUTO) 7.1 X10'3 (1.8-7.7); PLATELET COUNT 166 X10'3 (140-440); RED BLOOD COUNT 3.55 X10'6 (4.70-6.10); RED CELL DISTRIBUTION WIDTH 16.9 % (11.5-14.5); WHITE BLOOD COUNT 10.9 X10'3 (4.5-11.0)
--- NOTE | 2021-08-29 06:48 | NUR ---
Problems reprioritized. Patient report received, questions answered & plan of care reviewed with ELIAN MCBRIDE.
[2021-08-29 07:00] VITALS: BP 116/51
[2021-08-29 07:03] LABS: ALANINE AMINOTRANSFERASE 26 U/L (12-78); ALBUMIN 2.8 G/DL (3.4-5.0); ALBUMIN/GLOBULIN RATIO 0.8 (1.1-1.5); ALKALINE PHOSPHATASE 36 IU/L (46-116); ANION GAP 12 (8-16); ASPARTATE AMINO TRANSFERASE 20 U/L (10-37); BILIRUBIN,TOTAL 0.4 MG/DL (0.1-1.0); BLOOD UREA NITROGEN 27 MG/DL (7-18); BUN/CREATININE RATIO 26.7 (5.4-32.0); CALCIUM 8.7 MG/DL (8.5-10.1); CHLORIDE 105 MMOL/L (99-107); CREATININE 1.01 MG/DL (0.60-1.10); GLUCOSE 184 MG/DL (70-104); PHOSPHORUS 3.4 MG/DL (2.3-4.5); POTASSIUM 4.1 MMOL/L (3.5-5.1); SODIUM 140 MMOL/L (135-145); TOTAL CARBON DIOXIDE 23.5 MMOL/L (24-32); TOTAL PROTEIN 6.3 G/DL (6.4-8.2); eGFR 73 ML/MIN
[2021-08-29] MEDS: cefTRIAXone 1g/NS 100ml IVPB 100 ML IV SCH (07:31)
[2021-08-29] MEDS: docusate sod 100mg capsule PO SCH ×2 (07:31→19:18)
[2021-08-29] MEDS: fenofibrate 145mg tablet PO SCH (07:31)
[2021-08-29] MEDS: pantoprazole 40mg Tablet.DR PO SCH (07:31)
[2021-08-29] MEDS: cyanocobalamin 500mcg tablet PO SCH (07:32)
[2021-08-29] MEDS: levetiracetam 250mg tablet PO SCH ×2 (07:32→19:18)
[2021-08-29] MEDS: apixaban 5mg tablet PO SCH ×2 (07:32→19:18)
[2021-08-29] MEDS: levoTHYROXINE 125mcg tablet PO SCH (07:32)
[2021-08-29] MEDS: carVEDilol 3.125mg tablet PO SCH ×2 (07:33→19:18)
[2021-08-29] MEDS: HYDROcodone/acetaminophen 10/325mg tab PO PRN ×2 (07:33→17:37)
[2021-08-29] MEDS: fluconazole 100mg tablet PO SCH (07:44)
[2021-08-29] MEDS: K and/or MAG REPLACEMENT MC SCH ×2 (08:00→20:00)
[2021-08-29] MEDS ORDERED: allopurinol 300 MG tablet PO SCH (08:00)
[2021-08-29] MEDS ORDERED: pregabalin 25mg capsule PO SCH ×2 (08:00→12:30)
[2021-08-29] MEDS ORDERED: ferrous sulfate 325mg tablet PO SCH (08:00)
[2021-08-29] MEDS: insulin Lispro (HumaLOG) vial - multi-dose SQ SCH ×4 (09:55→21:28)
[2021-08-29] MEDS: sodium chloride 0.45% 1,000 ML IV SCH ×2 (10:04→19:44)
[2021-08-29 11:00] VITALS: BP 105/51
[2021-08-29] MEDS: morphine 2 MG/ML inj. syringe IV PRN ×2 (13:34→19:36)
--- NOTE | 2021-08-29 13:36 | NUR ---
patient pulled IV out, new iv in place.
--- NOTE | 2021-08-29 14:20 | NUR ---
call received from dhruv Garzaisten update given.
--- NOTE | 2021-08-29 14:22 | NUR ---
patient stable pain med administered as prescribed. dressing changed, no distress/SOB noted at this time
--- NOTE | 2021-08-29 15:51 | NUR ---
DM consult: Pt admitted w/ complicated UTI and sepsis per EMR. Pt w/ hx DM2, A1c 8.6 per EMR. Attempted to wake pt at bedside, however pt would not wake up w/ verbal cues. Pt would benefit from DM education and will follow up at a later time. Pt w/ a low Srinath of 11 and stage 3 PI to coccyx per WOC note. Pt is currently on carbohydrate control diet w/ recent 100% intake breakfast and lunch 08/29, w/ previous 50% intake 08/28. Patient's documented wt 90kg is unscaled, though most recent scaled wt 101 kg November [address] note 11/14/14 patient's height prior to bilateral AKA was 74", IBW is 86.3 kg, adjusted for bilat AKA is 76kg. LBM 08/28, receiving routine colace and w/ colostomy bag per EMR. Recommend Octavio smoothies BIDBD when it is back in stock to assist w/ wound healing and double protein w/ meals at this time to help meet additional protein needs. Will continue to monitor for nutrition intervention needs this admit. Recommendations: 1. Continue carbohydrate control diet 2. Double protein w/ meals 3. Octavio smoothies BIDBD once back in stock 4. Routine bowel care 5. Scaled wt this admit Addendum: 08/29/21 at 1552 by Ana María Fountain Intern RD Amended: Links added. Addendum: 08/29/21 at [address] I have reviewed and agree with note by Eviction Specialist. JODY Hughes
[2021-08-29 18:00] VITALS: BP 139/71
--- NOTE | 2021-08-29 18:35 | NUR ---
Problems reprioritized. Patient report given, questions answered & plan of care reviewed with ELIAN MCBRIDE
--- NOTE | 2021-08-29 18:57 | NUR ---
Patient in room COSME 353. I have received report from ELIAN Khan and had the opportunity to ask questions and assume patient care.
[2021-08-29] MEDS: pregabalin 75mg capsule PO SCH (21:16)
[2021-08-29] MEDS: temazepam 15mg capsule PO PRN (21:16)
[2021-08-29] MEDS: atorvastatin 20mg tablet PO SCH (21:16)
[2021-08-29] MEDS: amiodarone 200mg tablet PO SCH (21:16)
[2021-08-29] MEDS: insulin glargine (Lantus) pen - multi-dose SQ SCH (21:30)
[2021-08-30 00:01] VITALS: BP 130/81
[2021-08-30] MEDS: HYDROcodone/acetaminophen 10/325mg tab PO PRN ×2 (04:05→18:44)
--- NOTE | 2021-08-30 06:31 | NUR ---
Problems reprioritized. Patient report received, questions answered & plan of care reviewed with ELIAN MCBRIDE
--- NOTE | 2021-08-30 06:33 | NUR ---
Problems reprioritized. Patient report given, questions answered & plan of care reviewed with ELIAN Hollis.
[2021-08-30 06:43] LABS: BASOPHILS # (AUTO) 0.1 X10'3 (0-0.2); BASOPHILS % (AUTO) 0.7 % (0-1); EOSINOPHILS # (AUTO) 0.3 X10'3 (0-0.9); EOSINOPHILS % (AUTO) 3.2 % (0-6); HEMATOCRIT 30.5 % (42.0-52.0); HEMOGLOBIN 10.3 g/dl (14.0-17.9); LYMPHOCYTES # (AUTO) 2.8 X10'3 (1.1-4.8); MEAN CORPUSCULAR HEMOGLOBIN 30.2 PG (27.0-31.0); MEAN CORPUSCULAR HGB CONC 33.7 g/dL (33.0-36.5); MEAN CORPUSCULAR VOLUME 89.6 FL (78-98); MEAN PLATELET VOLUME 9.4 FL (7.4-10.4); MONOCYTES # (AUTO) 0.7 X10'3 (0-0.9); MONOCYTES % (AUTO) 7.2 % (2-12); NEUTROPHILS # (AUTO) 5.8 X10'3 (1.8-7.7); NEUTROPHILS % (AUTO) 59.9 % (42-75); PLATELET COUNT 161 X10'3 (140-440); RED CELL DISTRIBUTION WIDTH 16.8 % (11.5-14.5); WHITE BLOOD COUNT 9.6 X10'3 (4.5-11.0)
[2021-08-30 06:51] LABS: ALANINE AMINOTRANSFERASE 23 U/L (12-78); ALBUMIN 2.7 G/DL (3.4-5.0); ALBUMIN/GLOBULIN RATIO 0.8 (1.1-1.5); ALKALINE PHOSPHATASE 34 IU/L (46-116); ANION GAP 10 (8-16); ASPARTATE AMINO TRANSFERASE 20 U/L (10-37); BILIRUBIN,TOTAL 0.3 MG/DL (0.1-1.0); BLOOD UREA NITROGEN 24 MG/DL (7-18); BUN/CREATININE RATIO 25.5 (5.4-32.0); CALCIUM 8.3 MG/DL (8.5-10.1); CHLORIDE 105 MMOL/L (99-107); CREATININE 0.94 MG/DL (0.60-1.10); GLUCOSE 169 MG/DL (70-104); MAGNESIUM 2.1 MG/DL (1.5-2.4); PHOSPHORUS 2.5 MG/DL (2.3-4.5); POTASSIUM 4.4 MMOL/L (3.5-5.1); SODIUM 138 MMOL/L (135-145); TOTAL CARBON DIOXIDE 23.4 MMOL/L (24-32); TOTAL PROTEIN 6.3 G/DL (6.4-8.2); eGFR 79 ML/MIN
[2021-08-30 08:00] VITALS: BP 134/72
[2021-08-30] MEDS: K and/or MAG REPLACEMENT MC SCH ×2 (08:00→19:39)
[2021-08-30] MEDS: cefTRIAXone 1g/NS 100ml IVPB 100 ML IV SCH (08:09)
[2021-08-30] MEDS: venlafaxine 25mg tablet PO SCH ×2 (08:10→20:15)
[2021-08-30] MEDS: docusate sod 100mg capsule PO SCH ×2 (08:10→20:15)
[2021-08-30] MEDS: allopurinol 300 MG tablet PO SCH (08:10)
[2021-08-30] MEDS: levetiracetam 250mg tablet PO SCH ×2 (08:10→20:15)
[2021-08-30] MEDS: levoTHYROXINE 125mcg tablet PO SCH (08:10)
[2021-08-30] MEDS: fluconazole 100mg tablet PO SCH (08:11)
[2021-08-30] MEDS: pantoprazole 40mg Tablet.DR PO SCH (08:11)
[2021-08-30] MEDS: carVEDilol 3.125mg tablet PO SCH ×2 (08:11→20:16)
[2021-08-30] MEDS: HYDROcodone/acetaminophen 5mg/325mg tablet PO PRN (08:11)
[2021-08-30] MEDS: clopidogrel 75mg tablet PO SCH (08:11)
[2021-08-30] MEDS: apixaban 5mg tablet PO SCH ×2 (08:11→20:15)
[2021-08-30] MEDS: cyanocobalamin 500mcg tablet PO SCH (08:12)
[2021-08-30] MEDS: fenofibrate 145mg tablet PO SCH (08:12)
[2021-08-30] MEDS: zinc sulfate 220mg capsule PO SCH (08:13)
[2021-08-30] MEDS: iron polysaccharide complex 150mg capsule PO SCH (08:13)
[2021-08-30] MEDS: sodium chloride 0.45% 1,000 ML IV SCH ×2 (08:29→21:35)
[2021-08-30] MEDS: insulin Lispro (HumaLOG) vial - multi-dose SQ SCH ×3 (10:01→18:49)
[2021-08-30 12:00] VITALS: BP 107/56
[2021-08-30] MEDS: morphine 2 MG/ML inj. syringe IV PRN (15:14)
--- NOTE | 2021-08-30 18:03 | NUR ---
Patient in room [facility]. I have received report from ELIAN Hollis and had the opportunity to ask questions and assume patient care.
[2021-08-30 19:00] VITALS: BP 150/78
[2021-08-30 19:30] VITALS: BP 160/72
[2021-08-30] MEDS: amiodarone 200mg tablet PO SCH (20:15)
[2021-08-30] MEDS: atorvastatin 20mg tablet PO SCH (20:15)
[2021-08-30] MEDS: pregabalin 75mg capsule PO SCH (20:15)
[2021-08-30] MEDS: insulin glargine (Lantus) pen - multi-dose SQ SCH (21:18)
[2021-08-30] MEDS: temazepam 15mg capsule PO PRN (21:18)
[2021-08-31 00:01] VITALS: BP 121/72
--- NOTE | 2021-08-31 04:04 | NUR ---
pt found to be chewing on fingers of both hands, to the point of bleeding. family states that he has habit of doing this. pt cleaned up. hands and fingers cleansed. thumb and index finger of R hand wrapped with gauze. socks applied to both hands to prevent chewing. hands remain covered during each hourly rounding. pt appears confused at times other times very appropriate and answering questions. requested wound consult.
--- NOTE | 2021-08-31 06:27 | NUR ---
Problems reprioritized. Patient report given, questions answered & plan of care reviewed with ELIAN Salmeron.
[2021-08-31 06:30] LABS: BASOPHILS # (AUTO) 0.1 X10'3 (0-0.2); BASOPHILS % (AUTO) 0.9 % (0-1); EOSINOPHILS # (AUTO) 0.3 X10'3 (0-0.9); HEMATOCRIT 32.2 % (42.0-52.0); HEMOGLOBIN 10.8 g/dl (14.0-17.9); LYMPHOCYTES # (AUTO) 2.5 X10'3 (1.1-4.8); LYMPHOCYTES % (AUTO) 30.4 % (21-51); MEAN CORPUSCULAR HEMOGLOBIN 29.7 PG (27.0-31.0); MEAN CORPUSCULAR HGB CONC 33.5 g/dL (33.0-36.5); MEAN CORPUSCULAR VOLUME 88.8 FL (78-98); MEAN PLATELET VOLUME 9.3 FL (7.4-10.4); MONOCYTES # (AUTO) 0.6 X10'3 (0-0.9); MONOCYTES % (AUTO) 7.6 % (2-12); NEUTROPHILS # (AUTO) 4.7 X10'3 (1.8-7.7); NEUTROPHILS % (AUTO) 57.1 % (42-75); PLATELET COUNT 161 X10'3 (140-440); RED BLOOD COUNT 3.62 X10'6 (4.70-6.10); RED CELL DISTRIBUTION WIDTH 16.4 % (11.5-14.5); WHITE BLOOD COUNT 8.3 X10'3 (4.5-11.0)
--- NOTE | 2021-08-31 06:33 | NUR ---
Patient in room [facility]. I have received report from ELIAN Benz and had the opportunity to ask questions and assume patient care.
[2021-08-31 06:50] LABS: ALANINE AMINOTRANSFERASE 22 U/L (12-78); ALBUMIN 2.7 G/DL (3.4-5.0); ALBUMIN/GLOBULIN RATIO 0.7 (1.1-1.5); ALKALINE PHOSPHATASE 34 IU/L (46-116); ANION GAP 10 (8-16); ASPARTATE AMINO TRANSFERASE 20 U/L (10-37); BILIRUBIN,TOTAL 0.3 MG/DL (0.1-1.0); BLOOD UREA NITROGEN 17 MG/DL (7-18); BUN/CREATININE RATIO 20.2 (5.4-32.0); CALCIUM 8.6 MG/DL (8.5-10.1); CHLORIDE 105 MMOL/L (99-107); CREATININE 0.84 MG/DL (0.60-1.10); GLUCOSE 150 MG/DL (70-104); MAGNESIUM 1.9 MG/DL (1.5-2.4); PHOSPHORUS 2.4 MG/DL (2.3-4.5); POTASSIUM 4.2 MMOL/L (3.5-5.1); SODIUM 139 MMOL/L (135-145); TOTAL CARBON DIOXIDE 23.7 MMOL/L (24-32); TOTAL PROTEIN 6.5 G/DL (6.4-8.2); eGFR 90 ML/MIN
[2021-08-31 07:00] VITALS: BP 127/58
[2021-08-31] MEDS: docusate sod 100mg capsule PO SCH ×2 (07:31→20:09)
[2021-08-31] MEDS: clopidogrel 75mg tablet PO SCH (07:31)
[2021-08-31] MEDS: cyanocobalamin 500mcg tablet PO SCH (07:31)
[2021-08-31] MEDS: levoTHYROXINE 125mcg tablet PO SCH (07:31)
[2021-08-31] MEDS: iron polysaccharide complex 150mg capsule PO SCH (07:31)
[2021-08-31] MEDS: cefTRIAXone 1g/NS 100ml IVPB 100 ML IV SCH (07:31)
[2021-08-31] MEDS: carVEDilol 3.125mg tablet PO SCH ×2 (07:31→20:09)
[2021-08-31] MEDS: fluconazole 100mg tablet PO SCH (07:31)
[2021-08-31] MEDS: levetiracetam 250mg tablet PO SCH ×2 (07:31→20:09)
[2021-08-31] MEDS: venlafaxine 25mg tablet PO SCH ×2 (07:32→20:08)
[2021-08-31] MEDS: allopurinol 300 MG tablet PO SCH (07:32)
[2021-08-31] MEDS: pantoprazole 40mg Tablet.DR PO SCH (07:32)
[2021-08-31] MEDS: zinc sulfate 220mg capsule PO SCH (07:32)
[2021-08-31] MEDS: apixaban 5mg tablet PO SCH ×2 (07:33→20:09)
[2021-08-31] MEDS: HYDROcodone/acetaminophen 5mg/325mg tablet PO PRN ×2 (08:18→13:09)
[2021-08-31] MEDS: fenofibrate 145mg tablet PO SCH (08:18)
[2021-08-31] MEDS: insulin Lispro (HumaLOG) vial - multi-dose SQ SCH ×3 (08:29→19:46)
[2021-08-31] MEDS: K and/or MAG REPLACEMENT MC SCH ×2 (08:59→20:00)
[2021-08-31 10:15] VITALS: BP 133/80
[2021-08-31 11:41] VITALS: BP 148/72
[2021-08-31] MEDS: phenazopyridine 100mg tablet PO SCH ×2 (13:10→17:11)
[2021-08-31] MEDS: sodium chloride 0.45% 1,000 ML IV SCH (13:54)
--- NOTE | 2021-08-31 18:22 | NUR ---
Patient in room [facility]. I have received report from ELIAN Salmeron and had the opportunity to ask questions and assume patient care.
--- NOTE | 2021-08-31 18:23 | NUR ---
Problems reprioritized. Patient report given, questions answered & plan of care reviewed with ELIAN Atkins.
[2021-08-31] MEDS: pregabalin 75mg capsule PO SCH (20:08)
[2021-08-31] MEDS: amiodarone 200mg tablet PO SCH (20:09)
[2021-08-31] MEDS: atorvastatin 20mg tablet PO SCH (20:09)
[2021-08-31] MEDS: HYDROcodone/acetaminophen 10/325mg tab PO PRN (20:59)
[2021-08-31] MEDS: temazepam 15mg capsule PO PRN (21:02)
[2021-08-31] MEDS: insulin glargine (Lantus) pen - multi-dose SQ SCH (21:14)
[2021-08-31 23:44] VITALS: BP 115/62
[2021-09-01] MEDS: sodium chloride 0.45% 1,000 ML IV SCH (03:39)
--- NOTE | 2021-09-01 06:08 | NUR ---
Problems reprioritized. Patient report given, questions answered & plan of care reviewed with ELIAN Salmeron.
[2021-09-01 06:22] LABS: BASOPHILS # (AUTO) 0.1 X10'3 (0-0.2); BASOPHILS % (AUTO) 1.1 % (0-1); EOSINOPHILS # (AUTO) 0.3 X10'3 (0-0.9); EOSINOPHILS % (AUTO) 4.4 % (0-6); HEMATOCRIT 31.1 % (42.0-52.0); HEMOGLOBIN 10.6 g/dl (14.0-17.9); LYMPHOCYTES # (AUTO) 2.8 X10'3 (1.1-4.8); MEAN CORPUSCULAR HEMOGLOBIN 30.3 PG (27.0-31.0); MEAN CORPUSCULAR HGB CONC 34.1 g/dL (33.0-36.5); MEAN CORPUSCULAR VOLUME 88.7 FL (78-98); MEAN PLATELET VOLUME 9.5 FL (7.4-10.4); MONOCYTES # (AUTO) 0.6 X10'3 (0-0.9); MONOCYTES % (AUTO) 7.2 % (2-12); NEUTROPHILS % (AUTO) 51.3 % (42-75); PLATELET COUNT 186 X10'3 (140-440); RED CELL DISTRIBUTION WIDTH 16.6 % (11.5-14.5); WHITE BLOOD COUNT 7.7 X10'3 (4.5-11.0)
[2021-09-01 06:51] LABS: ALANINE AMINOTRANSFERASE 22 U/L (12-78); ALBUMIN 2.6 G/DL (3.4-5.0); ALBUMIN/GLOBULIN RATIO 0.7 (1.1-1.5); ALKALINE PHOSPHATASE 33 IU/L (46-116); ANION GAP 13 (8-16); ASPARTATE AMINO TRANSFERASE 23 U/L (10-37); BILIRUBIN,TOTAL 0.3 MG/DL (0.1-1.0); BLOOD UREA NITROGEN 19 MG/DL (7-18); BUN/CREATININE RATIO 21.6 (5.4-32.0); CALCIUM 8.5 MG/DL (8.5-10.1); CHLORIDE 105 MMOL/L (99-107); CREATININE 0.88 MG/DL (0.60-1.10); GLUCOSE 134 MG/DL (70-104); POTASSIUM 4.1 MMOL/L (3.5-5.1); SODIUM 140 MMOL/L (135-145); TOTAL CARBON DIOXIDE 22.5 MMOL/L (24-32); TOTAL PROTEIN 6.4 G/DL (6.4-8.2); eGFR 85 ML/MIN
[2021-09-01] MEDS: cefTRIAXone 1g/NS 100ml IVPB 100 ML IV SCH (07:21)
[2021-09-01] MEDS: levetiracetam 250mg tablet PO SCH (07:22)
[2021-09-01] MEDS: levoTHYROXINE 125mcg tablet PO SCH (07:22)
[2021-09-01] MEDS: carVEDilol 3.125mg tablet PO SCH (07:22)
[2021-09-01] MEDS: clopidogrel 75mg tablet PO SCH (07:23)
[2021-09-01] MEDS: venlafaxine 25mg tablet PO SCH (07:23)
[2021-09-01] MEDS: iron polysaccharide complex 150mg capsule PO SCH (07:23)
[2021-09-01] MEDS: allopurinol 300 MG tablet PO SCH (07:23)
[2021-09-01] MEDS: cyanocobalamin 500mcg tablet PO SCH (07:24)
[2021-09-01] MEDS: fenofibrate 145mg tablet PO SCH (07:24)
[2021-09-01] MEDS: docusate sod 100mg capsule PO SCH (07:24)
[2021-09-01] MEDS: zinc sulfate 220mg capsule PO SCH (07:24)
[2021-09-01] MEDS: phenazopyridine 100mg tablet PO SCH ×2 (07:24→13:00)
[2021-09-01] MEDS: fluconazole 100mg tablet PO SCH (07:24)
[2021-09-01] MEDS: pantoprazole 40mg Tablet.DR PO SCH (07:24)
[2021-09-01] MEDS: apixaban 5mg tablet PO SCH (07:33)
[2021-09-01 08:04] VITALS: BP 131/70
[2021-09-01] MEDS: K and/or MAG REPLACEMENT MC SCH (08:13)
[2021-09-01] MEDS: insulin Lispro (HumaLOG) vial - multi-dose SQ SCH (09:02)
[2021-09-01] MEDS: HYDROcodone/acetaminophen 10/325mg tab PO PRN (10:19)
[2021-09-01] MEDS: morphine 2 MG/ML inj. syringe IV PRN (11:27)
[2021-09-01] MEDS ORDERED: AMOX-580 PO (11:45)
[2021-09-01 11:48] VITALS: BP 107/71
--- NOTE | 2021-09-01 14:50 | NUR ---
PRESSURE ULCER EDUCATION: DEFINITION: A pressure ulcer is an area of skin that breaks down when you stay in one position too long. The constant pressure against the skin reduces the blood flow to that area and the affected tissue dies. CAUSES: "Being bedridden or in a wheelchair "Fragile skin "Having a chronic condition, such as diabetes or vascular disease "Inability to move certain parts of your body without assistance "Older age "Incontinence of urine or stool SYMPTOMS: "A reddened area that DOES NOT turn white when pressed on - this can be the beginning of a pressure ulcer "A blister, deep sore or a crater - these can be advanced pressure ulcers FIRST AID: "Relieve the pressure on this area "Keep the area clean and dry "Call your primary doctor if you see any of the above symptoms "DO NOT massage the area "DO NOT use a donut shaped or ring shaped pillow- these actually interfere with the blood flow and cause complications PREVENTION: "Check for pressure ulcers everyday "Change position at least every two hours to relieve pressure "Use items that help relieve pressure- pillows, sheepskin, foam padding, and powders. "Keep skin clean and dry "Eat healthy well balanced meals "Exercise daily IF YOU SEE ANY OF THESE SYMPTOMS WHILE IN THE HOSPITAL - TELL YOUR NURSE IMMEDIATELY. IF YOU SEE ANY OF THESE SYMPTOMS WHILE AT HOME OR HAVE ANY QUESTIONS OR CONCERNS ABOUT PRESSURE ULCERS - CALL YOUR PRIMARY DOCTOR IMMEDIATELY. Addendum: 09/01/21 at 1451 by Reyna Torres RN Amended: Links added.
== END 2021-09-01 14:39 | DRG 698 ==
LOC: ER 22:03 → UNDOADMIN 08-28 04:03 → ED HOLD 08-28 04:03 → EDBEDREQSVC 08-28 11:57 → SUR 3N 08-28 12:45
PROVIDERS: ADMIT Family Medicine; ATTEND Family Medicine
PROC: 0T2BX0Z Change Drainage Device in Bladder, External Approach (ICD-10-PCS; principal; 2021-08-27)
DX: T83.090A Other mechanical complication of cystostomy catheter, initial encounter (principal); L89.154 Pressure ulcer of sacral region, stage 4; A41.9 Sepsis, unspecified organism; N39.0 Urinary tract infection, site not specified; Z16.24 Resistance to multiple antibiotics; I48.20 Chronic atrial fibrillation, unspecified; Z20.822 Contact with and (suspected) exposure to COVID-19; E03.9 Hypothyroidism, unspecified; E11.42 Type 2 diabetes mellitus with diabetic polyneuropathy; E11.65 Type 2 diabetes mellitus with hyperglycemia; E78.5 Hyperlipidemia, unspecified; G89.29 Other chronic pain; I11.0 Hypertensive heart disease with heart failure; F32.A Depression, unspecified; M10.9 Gout, unspecified; I50.9 Heart failure, unspecified; K21.9 Gastro-esophageal reflux disease without esophagitis; K76.0 Fatty (change of) liver, not elsewhere classified; B96.4 Proteus (mirabilis) (morganii) as the cause of diseases classified elsewhere; Y73.8 Miscellaneous gastroenterology and urology devices associated with adverse incidents, not elsewhere classified; R25.1 Tremor, unspecified; Y92.89 Other specified places as the place of occurrence of the external cause; Z79.01 Long term (current) use of anticoagulants; Z79.4 Long term (current) use of insulin; Z79.84 Long term (current) use of oral hypoglycemic drugs; Z79.899 Other long term (current) drug therapy; Z87.442 Personal history of urinary calculi; Z87.891 Personal history of nicotine dependence; Z89.511 Acquired absence of right leg below knee; Z89.611 Acquired absence of right leg above knee; Z89.612 Acquired absence of left leg above knee; Z93.3 Colostomy status; Z93.59 Other cystostomy status; Z91.013 Allergy to seafood; Z83.3 Family history of diabetes mellitus
CPT/HCPCS: 36415; 71045; 74176; 80053; 80305; 81001; 81003; 82948; 83036; 83605; 83690; 83735; 83880; 84100; 84443; 85025; 85610; 85730; 87040; 87077; 87081; 87088; 87186; 87635; 97161; 97530; 99285; G0378; J0692; J0696; J1200; J1815; J2270; J2405; J3370; J3490; J7030